=== PATIENT | male | born 1945 | race Caucasian/White ===

== ENCOUNTER 2016-09-23 11:02 | Inpatient (IN) | payer OTHER, MEDICAID ==
[~2016-09-23] VITALS: Ht 172.7 cm; Wt 126.6 kg
[2016-09-23] VITALS (13 sets, daily range): BP systolic 77–171
[2016-09-23] MEDS ORDERED: NACL 0.9% 1,000 ML IV SCH (11:30)
[2016-09-23 11:58] LABS: BASOPHILS % (AUTO) 0.2 % (0.0-2.0); EOSINOPHILS # (AUTO) 0.1 K/uL (0.0-0.4); EOSINOPHILS % (AUTO) 0.4 % (0.0-4.0); HEMATOCRIT 29.3 % (36-54); HEMOGLOBIN 9.3 g/dL (14.0-18.0); LYMPHOCYTES # (AUTO) 3.5 K/uL (1.0-5.5); LYMPHOCYTES % (AUTO) 26.9 % (20.5-51.5); MEAN CORPUSCULAR HEMOGLOBIN 27 pg (27-31); MEAN CORPUSCULAR HGB CONC 32 % (32-36); MEAN CORPUSCULAR VOLUME 84 fL (79.0-98.0); MONOCYTES # (AUTO) 1.1 K/uL (0.0-1.0); MONOCYTES % (AUTO) 8.7 % (1.7-9.3); NEUTROPHILS # (AUTO) 8.3 K/uL (1.8-7.7); NEUTROPHILS % (AUTO) 63.8 % (40.0-70.0); PLATELET COUNT (AUTO) 329 K/uL (130-430); RED BLOOD CELL COUNT(AUTO) 3.47 MIL/uL (4.2-6.2); RED CELL DISTRIBUTION WIDTH 15.4 % (9.0-15.0)
[2016-09-23 12:00] LABS: CALCIUM 8.2 mg/dL (8.4-11.0); CREATININE 4.88 mg/dL (0.55-1.30); POTASSIUM 5.6 mmol/L (3.5-5.1)
[2016-09-23 12:04] LABS: INR 1.9 (0.80-1.20); PROTHROMBIN TIME 20.6 SECS (9.5-12.5)
[2016-09-23 12:05] LABS: ALBUMIN 2.8 g/dL (3.4-4.8); TOTAL BILIRUBIN 0.6 mg/dL (0.0-1.0); TOTAL PROTEIN, SERUM 7.4 g/dL (6.4-8.3)
[2016-09-23 12:12] LABS: BILIRUBIN,URINE 1+ (NEGATIVE); CLARITY/URINE CLEAR (CLEAR); COLOR,URINE YELLOW (YELLOW); GLUCOSE,URINE NEGATIVE (NEGATIVE); KETONES,URINE NEGATIVE (NEGATIVE); LEUKOCYTE ESTERASE ,URINE NEGATIVE (NEGATIVE); NITRITE, URINE NEGATIVE (NEGATIVE); PROTEIN URINE 1+ (NEGATIVE); UROBILINOGEN,URINE 0.2 (0.2-1.0)
[2016-09-23 12:15] LABS: BLOOD, URINE TRACE (NEGATIVE)
[2016-09-23 12:23] LABS: BACTERIA,URINE MODERATE /HPF (None Seen); MUCUS,URINE 1+ /LPF (None Seen)
[2016-09-23] MEDS ORDERED: NACL 0.9% 1,000 ML IV ONE ×2 (13:30→14:45)
[2016-09-23] MEDS ORDERED: DARU1TAB PO (14:07)
[2016-09-23] MEDS ORDERED: LYR50 PO (14:07)
[2016-09-23] MEDS ORDERED: CLOP75TA2 PO (14:07)
[2016-09-23] MEDS ORDERED: OXYC-133 PO (14:07)
[2016-09-23] MEDS ORDERED: PROC10TA PO (14:07)
[2016-09-23] MEDS ORDERED: METH750T3 PO (14:07)
[2016-09-23] MEDS ORDERED: DULA0.75 SQ (14:07)
[2016-09-23] MEDS ORDERED: BECL8.7A5 INH (14:07)
[2016-09-23] MEDS ORDERED: LISI-209 PO (14:07)
[2016-09-23] MEDS ORDERED: LORA10TA7 PO (14:07)
[2016-09-23] MEDS ORDERED: ASPI-1063 PO (14:07)
[2016-09-23] MEDS ORDERED: FURO40TA5 PO (14:07)
[2016-09-23] MEDS ORDERED: INSU100V26 SUBCUT (14:07)
[2016-09-23] MEDS ORDERED: NPH,100V SUBCUT (14:07)
[2016-09-23] MEDS ORDERED: PRO40 PO (14:07)
[2016-09-23] MEDS ORDERED: ENOX120D3 SQ (14:07)
[2016-09-23] MEDS ORDERED: OMEG1CAP8 PO (14:07)
[2016-09-23] MEDS ORDERED: ALBMDI INH (14:07)
[2016-09-23] MEDS ORDERED: SELZENTRY PO (14:07)
[2016-09-23] MEDS ORDERED: ROSU10TA PO (14:07)
[2016-09-23] MEDS ORDERED: WARF7.5T2 PO (14:07)
[2016-09-23] MEDS ORDERED: RALT400T5 PO (14:07)
[2016-09-23] MEDS ORDERED: GLU500 PO (14:07)
[2016-09-23] MEDS ORDERED: MORP30TA PO (14:07)
[2016-09-23] MEDS ORDERED: OXYC5TAB84 PO (14:07)
[2016-09-23] MEDS ORDERED: cefTRIAXone 1 GM VIAL IM ONE (14:45)
[2016-09-23] MEDS ORDERED: D5NS 1,000 ML IV ONE (15:00)
[2016-09-23] MEDS ORDERED: *HEPARIN PER PHARMACY XX ONE (15:00)
[2016-09-23] MEDS ORDERED: COMMUNICATION ORDER XX ONE (15:00)
[2016-09-23] MEDS ORDERED: ACYCLOVIR IV 500 MG in D5W 100 ML IV ONE (15:00)
[2016-09-23] MEDS ORDERED: DEXTROSE 50% JECT 50 ML DISP.SYRIN IVP PRN (15:00)
[2016-09-23] MEDS ORDERED: cefTRIAXone 1 GM IVPB PREMIX 50 ML IV ONE ×2 (15:00→17:30)
[2016-09-23] MEDS ORDERED: VANCOMYCIN HCL 1,000 MG in NS 250 ML IV ONE (15:00)
[2016-09-23] MEDS ORDERED: ACYCLOVIR SODIUM 50 MG/ML VIAL IV ONE (15:14)
[2016-09-23] MEDS ORDERED: VANCOMYCIN HCL 1000 MG/VIAL IV ONE (15:27)
[2016-09-23] MEDS ORDERED: HEPARIN SODIUM,PORCINE 3000 UNITS/0.6 ML BOLUS IVP PRN (16:15)
[2016-09-23] MEDS: HEPARIN 25,000 UNITS in 250 ML PREMIX IV PRN (17:23)
[2016-09-23] MEDS ORDERED: LIDOCAINE 1%, 20 ML MDV 20 ML ONE (18:28)
[2016-09-23 19:34] LABS: BLOOD GAS PH 7.184 (7.350-7.450)
[2016-09-23 19:35] LABS: ABG TOTAL HEMOGLOBIN 9.4 G/dL (12.0-18.0); BLOOD GAS BASE EXCESS -3.9 mmol/L (-3.0-3.0); BLOOD GAS COHb% 1.2 % (0.5-1.5); BLOOD GAS HHB 7.3 % (0.0-6.0)
[2016-09-23] MEDS: NACL 0.9% 1,000 ML IV ONE ×2 (19:45→21:04)
[2016-09-23 20:07] LABS: BF APPEARANCE UNSPUN BLOODY (CLEAR); BODY FLUID COLOR RED (LT YELLOW); BODY FLUID CRYSTALS NO CRYSTALS SEEN (None Seen); MONOCYTES,BODY FLUID 2 %; NEUTROPHIL, BODY FLUID 98 %; RBC, BODY FLUID 89375 /uL; SOURCE/TYPE ,BODY FLUID SYNOVIAL; WBC, BODY FLUID 20000 /uL
[2016-09-23] MEDS ORDERED: NOREPINEPHRINE BITARTRATE 4 MG in D5W 246 ML IV PRN (20:30)
[2016-09-23] MEDS ORDERED: LORazepam 2 MG/ML VIAL IVP PRN (20:30)
[2016-09-23 20:32] LABS: CALCIUM 7.7 mg/dL (8.4-11.0); CREATININE 4.71 mg/dL (0.55-1.30)
[2016-09-23] MEDS ORDERED: LORazepam 2 MG/ML VIAL ONE (20:37)
[2016-09-23 20:48] LABS: POTASSIUM 5.9 mmol/L (3.5-5.1)
[2016-09-23 21:01] LABS: BLOOD GAS PH 7.215 (7.350-7.450)
[2016-09-23 21:04] LABS: ABG TOTAL HEMOGLOBIN 9.7 G/dL (12.0-18.0); BLOOD GAS BASE EXCESS -6.5 mmol/L (-3.0-3.0); BLOOD GAS COHb% 0.8 % (0.5-1.5); BLOOD O2Hb% 97.5 % (94.0-97.0)
[2016-09-23 21:05] LABS: BLOOD GAS HHB 1.3 % (0.0-6.0)
[2016-09-23] MEDS: HYDROCORTISONE SOD SUCC 100 MG/2 ML VIAL IVP SCH (21:17)
[2016-09-23] MEDS ORDERED: SODIUM POLYSTYRENE SULFONATE 15 GM/60 ML UDBTL RC SCH (22:00)
[2016-09-23] MEDS ORDERED: NOREPINEPHRINE 4 MG/4 ML VIAL IV ONE (22:04)
[2016-09-23] MEDS: PANTOPRAZOLE SODIUM 40 MG/VIAL (PROTONIX) IVP SCH (22:23)
[2016-09-23 22:50] LABS: BLOOD GAS PH 7.302 (7.350-7.450)
[2016-09-23 22:52] LABS: ABG TOTAL HEMOGLOBIN 9.1 G/dL (12.0-18.0); BLOOD GAS BASE EXCESS -5.8 mmol/L (-3.0-3.0); BLOOD GAS HHB 2.3 % (0.0-6.0); BLOOD O2Hb% 96.6 % (94.0-97.0)
[2016-09-23] MEDS: ALBUTEROL SULFATE 0.083% 2.5 MG/3 ML VIAL.NEB INH SCH ×2 (23:45→23:47)
[2016-09-23] MEDS: IPRATROPIUM BROM 0.5 MG/2.5 ML VIAL.NEB (ATROVENT) INH SCH ×2 (23:46→23:47)
[2016-09-24] VITALS (26 sets, daily range): BP systolic 90–132
[2016-09-24] MEDS: INSULIN REGULAR, HUMAN 100 UNITS/ML, 10 ML VIAL (novoLIN R) SUBCUT PRN ×4 (00:51→17:35)
[2016-09-24] MEDS: ALBUTEROL SULFATE 0.083% 2.5 MG/3 ML VIAL.NEB INH SCH ×6 (03:46→23:22)
[2016-09-24] MEDS: IPRATROPIUM BROM 0.5 MG/2.5 ML VIAL.NEB (ATROVENT) INH SCH ×6 (03:46→23:22)
[2016-09-24] MEDS: D5NS 1,000 ML IV SCH ×2 (05:24→13:50)
[2016-09-24] MEDS: ALBUTEROL SULFATE 0.083% 2.5 MG/3 ML VIAL.NEB INH PRN (05:27)
[2016-09-24] MEDS: IPRATROPIUM BROM 0.5 MG/2.5 ML VIAL.NEB (ATROVENT) INH PRN (05:27)
[2016-09-24] MEDS: HYDROCORTISONE SOD SUCC 100 MG/2 ML VIAL IVP SCH ×3 (05:36→21:54)
[2016-09-24 06:31] LABS: BLOOD GAS PH 7.224 (7.350-7.450)
[2016-09-24 06:32] LABS: ABG TOTAL HEMOGLOBIN 10.5 G/dL (12.0-18.0); BLOOD GAS BASE EXCESS -6.9 mmol/L (-3.0-3.0); BLOOD GAS COHb% 0.8 % (0.5-1.5); BLOOD GAS HHB 4.6 % (0.0-6.0); BLOOD O2Hb% 94.3 % (94.0-97.0)
[2016-09-24] MEDS ORDERED: NOREPINEPHRINE 4 MG/4 ML VIAL IV ONE (06:39)
[2016-09-24 06:47] LABS: BASOPHILS % (AUTO) 0.3 % (0.0-2.0); HEMATOCRIT 27.4 % (36-54); HEMOGLOBIN 8.9 g/dL (14.0-18.0); LYMPHOCYTES # (AUTO) 3.4 K/uL (1.0-5.5); LYMPHOCYTES % (AUTO) 23.7 % (20.5-51.5); MEAN CORPUSCULAR HEMOGLOBIN 27 pg (27-31); MEAN CORPUSCULAR HGB CONC 32 % (32-36); MEAN CORPUSCULAR VOLUME 84 fL (79.0-98.0); MONOCYTES # (AUTO) 1.2 K/uL (0.0-1.0); MONOCYTES % (AUTO) 8.1 % (1.7-9.3); NEUTROPHILS # (AUTO) 9.9 K/uL (1.8-7.7); NEUTROPHILS % (AUTO) 67.9 % (40.0-70.0); PLATELET COUNT (AUTO) 361 K/uL (130-430); RED BLOOD CELL COUNT(AUTO) 3.26 MIL/uL (4.2-6.2); RED CELL DISTRIBUTION WIDTH 15.3 % (9.0-15.0); WHITE BLOOD COUNT (AUTO) 14.5 K/uL (4.8-10.8)
[2016-09-24 07:07] LABS: INR 1.8 (0.80-1.20); PROTHROMBIN TIME 19.7 SECS (9.5-12.5)
[2016-09-24 07:21] LABS: ALBUMIN 2.3 g/dL (3.4-4.8); CALCIUM 7.8 mg/dL (8.4-11.0); CREATININE 3.61 mg/dL (0.55-1.30); POTASSIUM 4.6 mmol/L (3.5-5.1); TOTAL BILIRUBIN 0.4 mg/dL (0.0-1.0); TOTAL PROTEIN, SERUM 6.7 g/dL (6.4-8.3)
[2016-09-24] MEDS: PANTOPRAZOLE SODIUM 40 MG/VIAL (PROTONIX) IVP SCH (08:25)
[2016-09-24] MEDS: HEPARIN 25,000 UNITS in 250 ML PREMIX IV PRN (10:15)
[2016-09-24] MEDS ORDERED: ETOMIDATE 20 MG/ 10 ML VIAL (AMIDATE) IVP ONE (14:21)
[2016-09-24] MEDS ORDERED: INSULIN NPH 100 UNITS/ML 10 ML VIAL SUBCUT SCH (17:00)
[2016-09-24] MEDS ORDERED: FUROSEMIDE 40 MG TABLET PO SCH (17:00)
[2016-09-24] MEDS ORDERED: PROCHLORPERAZINE MALEATE 10 MG TABLET PO SCH (17:00)
[2016-09-24] MEDS ORDERED: PANTOPRAZOLE SODIUM 40 MG TAB PO ONE (17:15)
[2016-09-24] MEDS: INSULIN ASPART 100 UNITS/ML, 10 ML VIAL SUBCUT SCH (17:36)
[2016-09-24] MEDS ORDERED: metFORMIN HCL 500 MG TABLET PO SCH (18:00)
[2016-09-24] MEDS ORDERED: PREGABALIN 25 MG CAPSULE (LYRICA) PO SCH (21:00)
[2016-09-24] MEDS: METHOCARBAMOL 500 MG TABLET PO SCH (21:00)
[2016-09-24] MEDS ORDERED: MORPHINE SULFATE 30 MG Immediate Release TABLET PO SCH (22:00)
[2016-09-24] MEDS ORDERED: METHOCARBAMOL 500 MG TABLET ONE (22:00)
[2016-09-25] VITALS (17 sets, daily range): BP systolic 119–158
[2016-09-25] MEDS: D5NS 1,000 ML IV SCH (01:10)
[2016-09-25] MEDS: HYDROcodone/ACETAMIN 5-325 MG TAB (NORCO/ VICODIN) PO PRN ×2 (01:55→08:15)
[2016-09-25] MEDS: HEPARIN 25,000 UNITS in 250 ML PREMIX IV PRN ×2 (03:31→19:31)
[2016-09-25] MEDS: HYDROCORTISONE SOD SUCC 100 MG/2 ML VIAL IVP SCH ×3 (05:13→21:04)
[2016-09-25 06:09] LABS: BASOPHILS % (AUTO) 0.2 % (0.0-2.0); EOSINOPHILS % (AUTO) 0.4 % (0.0-4.0); HEMATOCRIT 24.5 % (36-54); HEMOGLOBIN 7.8 g/dL (14.0-18.0); LYMPHOCYTES # (AUTO) 1.4 K/uL (1.0-5.5); LYMPHOCYTES % (AUTO) 25.5 % (20.5-51.5); MEAN CORPUSCULAR HEMOGLOBIN 27 pg (27-31); MEAN CORPUSCULAR HGB CONC 32 % (32-36); MEAN CORPUSCULAR VOLUME 85 fL (79.0-98.0); MONOCYTES # (AUTO) 0.5 K/uL (0.0-1.0); MONOCYTES % (AUTO) 9.3 % (1.7-9.3); NEUTROPHILS # (AUTO) 3.6 K/uL (1.8-7.7); NEUTROPHILS % (AUTO) 64.6 % (40.0-70.0); PLATELET COUNT (AUTO) 227 K/uL (130-430); RED BLOOD CELL COUNT(AUTO) 2.89 MIL/uL (4.2-6.2); WHITE BLOOD COUNT (AUTO) 5.5 K/uL (4.8-10.8)
[2016-09-25 06:29] LABS: ALBUMIN 2.3 g/dL (3.4-4.8); CALCIUM 7.9 mg/dL (8.4-11.0); CREATININE 1.72 mg/dL (0.55-1.30); POTASSIUM 3.6 mmol/L (3.5-5.1); TOTAL BILIRUBIN 0.3 mg/dL (0.0-1.0); TOTAL PROTEIN, SERUM 6.5 g/dL (6.4-8.3)
[2016-09-25 06:50] LABS: INR 1.4 (0.80-1.20); PROTHROMBIN TIME 15.7 SECS (9.5-12.5)
[2016-09-25] MEDS: PANTOPRAZOLE SODIUM 40 MG TAB PO SCH (08:44)
[2016-09-25] MEDS: ASPIRIN 81 MG TABLET(ECOTRIN) PO SCH (08:44)
[2016-09-25] MEDS: METHOCARBAMOL 500 MG TABLET PO SCH ×3 (08:45→21:04)
[2016-09-25] MEDS: INSULIN ASPART 100 UNITS/ML, 10 ML VIAL SUBCUT SCH ×2 (08:46→17:21)
[2016-09-25] MEDS ORDERED: LISINOPRIL 5 MG TABLET PO SCH (09:00)
[2016-09-25] MEDS ORDERED: LORATADINE 10 MG TABLET PO SCH (09:00)
[2016-09-25] MEDS ORDERED: CLOPIDOGREL BISULFATE 75 MG TABLET PO SCH (09:00)
[2016-09-25] MEDS ORDERED: VANCOMYCIN HCL 1,500 MG in NS 250 ML IV SCH (09:00)
[2016-09-25] MEDS ORDERED: ROSUVASTATIN CALCIUM 5 MG/TAB (CRESTOR) PO SCH (09:00)
[2016-09-25] MEDS: VANCOMYCIN HCL 1,500 MG in NS 250 ML IV SCH (09:11)
[2016-09-25] MEDS ORDERED: MORPHINE 4 MG/ML INJ. SYRINGE IVP PRN (10:00)
[2016-09-25] MEDS ORDERED: MORPHINE 2 MG/ML INJ. SYRINGE IVP ONE ×2 (10:00)
[2016-09-25] MEDS ORDERED: FUROSEMIDE 40 MG/4 ML VIAL IVP ONE (10:00)
[2016-09-25] MEDS ORDERED: MORPHINE 2 MG/ML INJ. SYRINGE ONE (10:30)
[2016-09-25] MEDS: 0.45% NACL 1,000 ML IV SCH (10:40)
[2016-09-25] MEDS: IPRATROPIUM BROM 0.5 MG/2.5 ML VIAL.NEB (ATROVENT) INH SCH ×5 (11:00→23:57)
[2016-09-25] MEDS: ALBUTEROL SULFATE 0.083% 2.5 MG/3 ML VIAL.NEB INH SCH ×5 (11:00→23:57)
[2016-09-25] MEDS ORDERED: METOCLOPRAMIDE HCL 10 MG/2 ML VIAL ONE (15:07)
[2016-09-25] MEDS ORDERED: DIATR MEGLU/DIATRIZ SOD 30 ML SOLUTION PO ONE (15:11)
[2016-09-25] MEDS: HEPARIN SODIUM,PORCINE 2000 UNITS/0.4 ML BOLUS IVP PRN ×2 (16:07→23:18)
[2016-09-25] MEDS: INSULIN REGULAR, HUMAN 100 UNITS/ML, 10 ML VIAL (novoLIN R) SUBCUT PRN (17:23)
[2016-09-25] MEDS: OXYCODONE/ACETAMINOPHEN *10*mg/325 mg TABLET PO PRN ×2 (17:29→22:26)
[2016-09-25] MEDS: WARFARIN SODIUM 7.5 MG TABLET PO SCH (17:44)
[2016-09-25] MEDS: METOCLOPRAMIDE HCL 10 MG/2 ML VIAL IVP PRN (21:03)
[2016-09-25] MEDS: HYDROmorphone 1 MG INJ. 1 MG/ML AMPUL IVP PRN (23:19)
[2016-09-26 00:46] VITALS: BP_SYST 130
[2016-09-26 03:37] VITALS: BP_SYST 133
[2016-09-26] MEDS: ALBUTEROL SULFATE 0.083% 2.5 MG/3 ML VIAL.NEB INH SCH ×6 (03:41→23:55)
[2016-09-26] MEDS: IPRATROPIUM BROM 0.5 MG/2.5 ML VIAL.NEB (ATROVENT) INH SCH ×6 (03:41→23:54)
[2016-09-26] MEDS: 0.45% NACL 1,000 ML IV SCH (05:11)
[2016-09-26] MEDS: HYDROCORTISONE SOD SUCC 100 MG/2 ML VIAL IVP SCH ×3 (05:12→20:56)
[2016-09-26 07:17] LABS: INR 1.2 (0.80-1.20); PROTHROMBIN TIME 13.6 SECS (9.5-12.5)
[2016-09-26 07:19] LABS: BASOPHILS % (AUTO) 0.2 % (0.0-2.0); EOSINOPHILS % (AUTO) 0.1 % (0.0-4.0); HEMATOCRIT 24.9 % (36-54); HEMOGLOBIN 8.2 g/dL (14.0-18.0); LYMPHOCYTES # (AUTO) 1.3 K/uL (1.0-5.5); LYMPHOCYTES % (AUTO) 17.6 % (20.5-51.5); MEAN CORPUSCULAR HEMOGLOBIN 27 pg (27-31); MEAN CORPUSCULAR HGB CONC 33 % (32-36); MEAN CORPUSCULAR VOLUME 83 fL (79.0-98.0); MONOCYTES # (AUTO) 0.5 K/uL (0.0-1.0); MONOCYTES % (AUTO) 7.1 % (1.7-9.3); NEUTROPHILS # (AUTO) 5.4 K/uL (1.8-7.7); PLATELET COUNT (AUTO) 292 K/uL (130-430); RED CELL DISTRIBUTION WIDTH 14.7 % (9.0-15.0)
[2016-09-26 07:27] LABS: WHITE BLOOD COUNT (AUTO) 7.2 K/uL (4.8-10.8)
[2016-09-26 07:30] LABS: ALBUMIN 4.8 g/dL (3.4-4.8); CALCIUM 8.1 mg/dL (8.4-11.0); CREATININE 1.38 mg/dL (0.55-1.30); TOTAL BILIRUBIN 0.5 mg/dL (0.0-1.0); TOTAL PROTEIN, SERUM 6.4 g/dL (6.4-8.3)
[2016-09-26 07:46] LABS: POTASSIUM 2.8 mmol/L (3.5-5.1)
[2016-09-26 08:10] VITALS: BP_SYST 150
[2016-09-26] MEDS: INSULIN ASPART 100 UNITS/ML, 10 ML VIAL SUBCUT SCH ×2 (08:30→17:58)
[2016-09-26] MEDS: METHOCARBAMOL 500 MG TABLET PO SCH ×3 (08:46→20:56)
[2016-09-26] MEDS: ASPIRIN 81 MG TABLET(ECOTRIN) PO SCH (08:46)
[2016-09-26] MEDS: PANTOPRAZOLE SODIUM 40 MG TAB PO SCH (08:47)
[2016-09-26] MEDS: VANCOMYCIN HCL 1,500 MG in NS 250 ML IV SCH (08:47)
[2016-09-26] MEDS: HEPARIN 25,000 UNITS in 250 ML PREMIX IV PRN ×3 (08:52→23:46)
[2016-09-26 09:46] LABS: ABG TOTAL HEMOGLOBIN 8.7 G/dL (12.0-18.0); BLOOD GAS BASE EXCESS 4.1 mmol/L (-3.0-3.0); BLOOD GAS COHb% 0.9 % (0.5-1.5); BLOOD GAS HHB 3.3 % (0.0-6.0); BLOOD GAS PH 7.465 (7.350-7.450); BLOOD O2Hb% 95.4 % (94.0-97.0)
[2016-09-26 10:09] LABS: BLOOD O2Hb% 91.3 % (94.0-97.0)
[2016-09-26] MEDS ORDERED: FUROSEMIDE 40 MG/4 ML VIAL IVP ONE (10:30)
[2016-09-26] MEDS: POTASSIUM CHLORIDE 20 MEQ TAB.PRT.SR PO SCH ×2 (11:17→13:30)
[2016-09-26] MEDS: METOCLOPRAMIDE HCL 10 MG/2 ML VIAL IVP PRN (11:38)
[2016-09-26 12:14] VITALS: BP_SYST 158
[2016-09-26] MEDS ORDERED: POTASSIUM CHLORIDE 40 MEQ, LIDOCAINE JECT 2% PF 100 MG 50 MG in NS 250 ML IV ONE (12:15)
[2016-09-26] MEDS: IPRATROPIUM BROM 0.5 MG/2.5 ML VIAL.NEB (ATROVENT) INH PRN (12:17)
[2016-09-26] MEDS: ALBUTEROL SULFATE 0.083% 2.5 MG/3 ML VIAL.NEB INH PRN ×2 (12:18→17:46)
[2016-09-26] MEDS: OXYCODONE/ACETAMINOPHEN *10*mg/325 mg TABLET PO PRN (14:59)
[2016-09-26] MEDS: HYDROmorphone 1 MG INJ. 1 MG/ML AMPUL IVP PRN ×2 (16:07→22:18)
[2016-09-26 16:09] VITALS: BP_SYST 151
[2016-09-26 17:40] VITALS: BP_SYST 151
[2016-09-26] MEDS: INSULIN REGULAR, HUMAN 100 UNITS/ML, 10 ML VIAL (novoLIN R) SUBCUT PRN ×2 (17:54→23:51)
[2016-09-26] MEDS: WARFARIN SODIUM 7.5 MG TABLET PO SCH (18:01)
[2016-09-26] MEDS: ZOLPIDEM TARTRATE 5 MG TABLET PO PRN (23:47)
[2016-09-27 00:39] VITALS: BP_SYST 138
[2016-09-27] MEDS: OXYCODONE/ACETAMINOPHEN *10*mg/325 mg TABLET PO PRN ×3 (02:23→21:22)
[2016-09-27] MEDS: IPRATROPIUM BROM 0.5 MG/2.5 ML VIAL.NEB (ATROVENT) INH SCH ×4 (03:00→20:01)
[2016-09-27] MEDS: ALBUTEROL SULFATE 0.083% 2.5 MG/3 ML VIAL.NEB INH SCH ×4 (03:00→20:01)
[2016-09-27 04:45] VITALS: BP_SYST 150
[2016-09-27] MEDS: HYDROCORTISONE SOD SUCC 100 MG/2 ML VIAL IVP SCH ×2 (05:47→14:00)
[2016-09-27 06:41] LABS: INR 1.3 (0.80-1.20); PROTHROMBIN TIME 13.7 SECS (9.5-12.5)
[2016-09-27 06:47] LABS: BASOPHILS % (AUTO) 0.1 % (0.0-2.0); EOSINOPHILS % (AUTO) 0.1 % (0.0-4.0); HEMATOCRIT 24.5 % (36-54); LYMPHOCYTES # (AUTO) 1.6 K/uL (1.0-5.5); LYMPHOCYTES % (AUTO) 17.4 % (20.5-51.5); MEAN CORPUSCULAR HEMOGLOBIN 27 pg (27-31); MEAN CORPUSCULAR HGB CONC 33 % (32-36); MEAN CORPUSCULAR VOLUME 84 fL (79.0-98.0); MONOCYTES # (AUTO) 0.4 K/uL (0.0-1.0); MONOCYTES % (AUTO) 4.4 % (1.7-9.3); PLATELET COUNT (AUTO) 293 K/uL (130-430); RED BLOOD CELL COUNT(AUTO) 2.94 MIL/uL (4.2-6.2); RED CELL DISTRIBUTION WIDTH 14.9 % (9.0-15.0)
[2016-09-27 06:51] LABS: ALBUMIN 2.8 g/dL (3.4-4.8); CALCIUM 8.2 mg/dL (8.4-11.0); CREATININE 1.41 mg/dL (0.55-1.30); POTASSIUM 3.1 mmol/L (3.5-5.1); TOTAL BILIRUBIN 0.5 mg/dL (0.0-1.0); TOTAL PROTEIN, SERUM 6.9 g/dL (6.4-8.3)
[2016-09-27] MEDS: PANTOPRAZOLE SODIUM 40 MG TAB PO SCH (09:00)
[2016-09-27] MEDS: METHOCARBAMOL 500 MG TABLET PO SCH ×3 (09:00→21:21)
[2016-09-27] MEDS: ASPIRIN 81 MG TABLET(ECOTRIN) PO SCH (09:00)
[2016-09-27 09:21] VITALS: BP_SYST 144
[2016-09-27] MEDS: INSULIN ASPART 100 UNITS/ML, 10 ML VIAL SUBCUT SCH ×2 (10:07→17:31)
[2016-09-27] MEDS: VANCOMYCIN HCL 1,500 MG in NS 250 ML IV SCH (10:13)
[2016-09-27] MEDS: HEPARIN 25,000 UNITS in 250 ML PREMIX IV PRN (10:29)
[2016-09-27] MEDS: HYDROmorphone 1 MG INJ. 1 MG/ML AMPUL IVP PRN (10:33)
[2016-09-27] MEDS ORDERED: RALTEGRAVIR POTASSIUM PO SCH (11:15)
[2016-09-27] MEDS ORDERED: SELZENTRY PO SCH (11:15)
[2016-09-27] MEDS ORDERED: DARUNAVIR PO SCH (11:15)
[2016-09-27] MEDS ORDERED: COBICISTAT PO SCH (11:15)
[2016-09-27] MEDS: PREZCOBIX PO SCH (11:20)
[2016-09-27] MEDS: ISENTRESS 400 MG TABLET PO SCH ×2 (11:20→21:30)
[2016-09-27] MEDS: SELZENTRY PO SCH ×2 (11:20→21:30)
[2016-09-27] MEDS ORDERED: POTASSIUM CHLORIDE 20 MEQ TAB.PRT.SR PO ONE (11:45)
[2016-09-27] MEDS: INSULIN REGULAR, HUMAN 100 UNITS/ML, 10 ML VIAL (novoLIN R) SUBCUT PRN ×2 (12:12→17:32)
[2016-09-27 12:27] VITALS: BP_SYST 153
[2016-09-27] MEDS ORDERED: *LOVENOX 1MG/KG Q12H/PHARMACY XX ONE (14:45)
[2016-09-27] MEDS: ENOXAPARIN SODIUM 120 MG/0.8 ML SYRINGE SUBCUT SCH (15:31)
[2016-09-27 16:14] VITALS: BP_SYST 134
[2016-09-27] MEDS ORDERED: WARFARIN SODIUM 5 MG TABLET PO SCH (18:00)
[2016-09-27 20:06] VITALS: BP_SYST 154
[2016-09-28] MEDS: ALBUTEROL SULFATE 0.083% 2.5 MG/3 ML VIAL.NEB INH SCH ×7 (00:12→23:21)
[2016-09-28] MEDS: IPRATROPIUM BROM 0.5 MG/2.5 ML VIAL.NEB (ATROVENT) INH SCH ×7 (00:12→23:21)
[2016-09-28 00:16] VITALS: BP_SYST 136
[2016-09-28] MEDS: ZOLPIDEM TARTRATE 5 MG TABLET PO PRN (01:15)
[2016-09-28] MEDS: OXYCODONE/ACETAMINOPHEN *10*mg/325 mg TABLET PO PRN ×3 (02:14→18:49)
[2016-09-28] MEDS: ENOXAPARIN SODIUM 120 MG/0.8 ML SYRINGE SUBCUT SCH ×2 (02:22→15:00)
[2016-09-28 04:36] VITALS: BP_SYST 143
[2016-09-28] MEDS: INSULIN REGULAR, HUMAN 100 UNITS/ML, 10 ML VIAL (novoLIN R) SUBCUT PRN (05:45)
[2016-09-28 07:36] LABS: BASOPHILS % (AUTO) 0.2 % (0.0-2.0); EOSINOPHILS % (AUTO) 0.3 % (0.0-4.0); HEMATOCRIT 24.7 % (36-54); LYMPHOCYTES # (AUTO) 1.4 K/uL (1.0-5.5); LYMPHOCYTES % (AUTO) 17.3 % (20.5-51.5); MEAN CORPUSCULAR HEMOGLOBIN 27 pg (27-31); MEAN CORPUSCULAR HGB CONC 32 % (32-36); MEAN CORPUSCULAR VOLUME 84 fL (79.0-98.0); MONOCYTES # (AUTO) 0.4 K/uL (0.0-1.0); MONOCYTES % (AUTO) 5.1 % (1.7-9.3); NEUTROPHILS # (AUTO) 6.4 K/uL (1.8-7.7); NEUTROPHILS % (AUTO) 77.1 % (40.0-70.0); PLATELET COUNT (AUTO) 302 K/uL (130-430); RED BLOOD CELL COUNT(AUTO) 2.95 MIL/uL (4.2-6.2); RED CELL DISTRIBUTION WIDTH 15.4 % (9.0-15.0); WHITE BLOOD COUNT (AUTO) 8.2 K/uL (4.8-10.8)
[2016-09-28 07:44] LABS: INR 1.3 (0.80-1.20); PROTHROMBIN TIME 14.1 SECS (9.5-12.5)
[2016-09-28 07:48] LABS: ALBUMIN 2.7 g/dL (3.4-4.8); CALCIUM 8.5 mg/dL (8.4-11.0); CREATININE 1.26 mg/dL (0.55-1.30); POTASSIUM 3.3 mmol/L (3.5-5.1); TOTAL BILIRUBIN 0.6 mg/dL (0.0-1.0); TOTAL PROTEIN, SERUM 6.8 g/dL (6.4-8.3)
[2016-09-28 08:00] VITALS: BP_SYST 144
[2016-09-28] MEDS: PANTOPRAZOLE SODIUM 40 MG TAB PO SCH (08:55)
[2016-09-28] MEDS: METHOCARBAMOL 500 MG TABLET PO SCH ×3 (08:55→21:31)
[2016-09-28] MEDS: SELZENTRY PO SCH ×2 (08:57→21:35)
[2016-09-28] MEDS: PREZCOBIX PO SCH (08:58)
[2016-09-28] MEDS: ISENTRESS 400 MG TABLET PO SCH ×2 (08:59→21:40)
[2016-09-28] MEDS: ASPIRIN 81 MG TABLET(ECOTRIN) PO SCH (09:00)
[2016-09-28] MEDS: INSULIN ASPART 100 UNITS/ML, 10 ML VIAL SUBCUT SCH ×2 (09:05→17:53)
[2016-09-28] MEDS ORDERED: DOXYCYCLINE HYCLATE 100 MG CAPSULE PO ONE (10:30)
[2016-09-28] MEDS ORDERED: FUROSEMIDE 20 MG/2 ML VIAL IVP ONE (10:45)
[2016-09-28] MEDS ORDERED: POTASSIUM CHLORIDE 20 MEQ TAB.PRT.SR PO ONE (10:45)
[2016-09-28] MEDS ORDERED: FUROSEMIDE 20 MG TABLET PO ONE (11:00)
[2016-09-28 12:35] VITALS: BP_SYST 153
[2016-09-28 16:14] VITALS: BP_SYST 147
[2016-09-28 18:09] LABS: BASOPHILS # (AUTO) 0.1 K/uL (0.0-0.2); BASOPHILS % (AUTO) 1.6 % (0.0-2.0); EOSINOPHILS % (AUTO) 0.2 % (0.0-4.0); HEMATOCRIT 26.3 % (36-54); HEMOGLOBIN 8.3 g/dL (14.0-18.0); LYMPHOCYTES # (AUTO) 1.6 K/uL (1.0-5.5); LYMPHOCYTES % (AUTO) 18.6 % (20.5-51.5); MEAN CORPUSCULAR HEMOGLOBIN 27 pg (27-31); MEAN CORPUSCULAR HGB CONC 31 % (32-36); MEAN CORPUSCULAR VOLUME 85 fL (79.0-98.0); MONOCYTES # (AUTO) 0.4 K/uL (0.0-1.0); MONOCYTES % (AUTO) 4.7 % (1.7-9.3); NEUTROPHILS # (AUTO) 6.3 K/uL (1.8-7.7); NEUTROPHILS % (AUTO) 74.9 % (40.0-70.0); PLATELET COUNT (AUTO) 328 K/uL (130-430); RED CELL DISTRIBUTION WIDTH 15.4 % (9.0-15.0); WHITE BLOOD COUNT (AUTO) 8.4 K/uL (4.8-10.8)
[2016-09-28 18:32] LABS: INR 1.3 (0.80-1.20); PROTHROMBIN TIME 14.2 SECS (9.5-12.5)
[2016-09-28] MEDS: DOXYCYCLINE HYCLATE 100 MG CAPSULE PO SCH (21:27)
[2016-09-29] MEDS: OXYCODONE/ACETAMINOPHEN *10*mg/325 mg TABLET PO PRN ×6 (00:05→22:01)
[2016-09-29 01:03] VITALS: BP_SYST 144
[2016-09-29] MEDS: ALBUTEROL SULFATE 0.083% 2.5 MG/3 ML VIAL.NEB INH SCH ×5 (02:59→21:02)
[2016-09-29] MEDS: IPRATROPIUM BROM 0.5 MG/2.5 ML VIAL.NEB (ATROVENT) INH SCH ×6 (02:59→23:00)
[2016-09-29 05:04] VITALS: BP_SYST 134
[2016-09-29 08:00] VITALS: BP_SYST 155
[2016-09-29] MEDS: DOXYCYCLINE HYCLATE 100 MG CAPSULE PO SCH ×2 (08:43→21:26)
[2016-09-29] MEDS: METHOCARBAMOL 500 MG TABLET PO SCH ×3 (08:43→21:31)
[2016-09-29] MEDS: PANTOPRAZOLE SODIUM 40 MG TAB PO SCH (08:44)
[2016-09-29] MEDS: ASPIRIN 81 MG TABLET(ECOTRIN) PO SCH (08:44)
[2016-09-29] MEDS: PREZCOBIX PO SCH (08:44)
[2016-09-29] MEDS: SELZENTRY PO SCH ×2 (08:44→21:33)
[2016-09-29] MEDS: ISENTRESS 400 MG TABLET PO SCH ×2 (08:44→21:34)
[2016-09-29] MEDS: INSULIN ASPART 100 UNITS/ML, 10 ML VIAL SUBCUT SCH ×2 (08:56→17:23)
[2016-09-29] MEDS ORDERED: PREDNISONE 20 MG TABLET PO ONE (11:00)
[2016-09-29] MEDS: INSULIN REGULAR, HUMAN 100 UNITS/ML, 10 ML VIAL (novoLIN R) SUBCUT PRN ×2 (11:25→17:26)
[2016-09-29 11:53] LABS: BASOPHILS % (AUTO) 0.1 % (0.0-2.0); EOSINOPHILS % (AUTO) 0.4 % (0.0-4.0); HEMATOCRIT 28.7 % (36-54); HEMOGLOBIN 9.1 g/dL (14.0-18.0); LYMPHOCYTES # (AUTO) 1.3 K/uL (1.0-5.5); LYMPHOCYTES % (AUTO) 13.7 % (20.5-51.5); MEAN CORPUSCULAR HEMOGLOBIN 27 pg (27-31); MEAN CORPUSCULAR HGB CONC 32 % (32-36); MEAN CORPUSCULAR VOLUME 85 fL (79.0-98.0); MONOCYTES # (AUTO) 0.3 K/uL (0.0-1.0); MONOCYTES % (AUTO) 2.7 % (1.7-9.3); NEUTROPHILS # (AUTO) 7.7 K/uL (1.8-7.7); NEUTROPHILS % (AUTO) 83.1 % (40.0-70.0); PLATELET COUNT (AUTO) 331 K/uL (130-430); RED BLOOD CELL COUNT(AUTO) 3.37 MIL/uL (4.2-6.2); RED CELL DISTRIBUTION WIDTH 15.7 % (9.0-15.0); WHITE BLOOD COUNT (AUTO) 9.3 K/uL (4.8-10.8)
[2016-09-29 12:05] LABS: CALCIUM 8.9 mg/dL (8.4-11.0); CHLORIDE 108 mmol/L (98-107); CREATININE 1.12 mg/dL (0.55-1.30); GLUCOSE 113 mg/dL (70-99); POTASSIUM 3.7 mmol/L (3.5-5.1); SODIUM SERUM 141 mmol/L (136-145); UREA NITROGEN, BLOOD 17 mg/dL (8-21)
[2016-09-29 12:06] LABS: ANION GAP < 3 (5-15); GFR AFRICAN AMERICAN 83 mL/min (>90)
[2016-09-29 12:10] LABS: ALANINE AMINOTRANSFERASE 40 U/L (12-78); ALBUMIN 2.9 g/dL (3.4-4.8); ASPARTATE AMINOTRANSFERASE 33 U/L (10-37); TOTAL BILIRUBIN 0.6 mg/dL (0.0-1.0); TOTAL PROTEIN, SERUM 7.3 g/dL (6.4-8.3)
[2016-09-29 12:49] VITALS: BP_SYST 157
[2016-09-29] MEDS: LACTOBACILLUS RHAMNOSUS GG 1 CAP CAPSULE PO SCH ×2 (13:15→21:25)
[2016-09-29] MEDS: CEPHALEXIN 500 MG CAPSULE PO SCH ×3 (14:24→23:14)
[2016-09-29] MEDS ORDERED: MINERAL OIL 30 ML UDC PO ONE (15:00)
[2016-09-29] MEDS: DIPHENHYDRAMINE HCL/ZINC ACET 28.3 GM CREAM.GM. TP SCH ×3 (15:00→21:22)
[2016-09-29 16:55] VITALS: BP_SYST 149
[2016-09-30] MEDS: ALBUTEROL SULFATE 0.083% 2.5 MG/3 ML VIAL.NEB INH SCH ×5 (00:18→15:06)
[2016-09-30 00:25] VITALS: BP_SYST 150
[2016-09-30] MEDS: ALBUTEROL SULFATE 0.083% 2.5 MG/3 ML VIAL.NEB INH PRN (00:56)
[2016-09-30] MEDS: IPRATROPIUM BROM 0.5 MG/2.5 ML VIAL.NEB (ATROVENT) INH PRN (00:56)
[2016-09-30] MEDS: OXYCODONE/ACETAMINOPHEN *10*mg/325 mg TABLET PO PRN ×4 (02:52→20:01)
[2016-09-30] MEDS: IPRATROPIUM BROM 0.5 MG/2.5 ML VIAL.NEB (ATROVENT) INH SCH ×4 (03:00→15:06)
[2016-09-30 04:36] VITALS: BP_SYST 144
[2016-09-30] MEDS: CEPHALEXIN 500 MG CAPSULE PO SCH ×3 (05:35→17:59)
[2016-09-30 06:29] LABS: BASOPHILS % (AUTO) 0.1 % (0.0-2.0); EOSINOPHILS % (AUTO) 0.4 % (0.0-4.0); HEMATOCRIT 25.9 % (36-54); HEMOGLOBIN 8.4 g/dL (14.0-18.0); LYMPHOCYTES # (AUTO) 1.3 K/uL (1.0-5.5); MEAN CORPUSCULAR HEMOGLOBIN 27 pg (27-31); MEAN CORPUSCULAR HGB CONC 32 % (32-36); MEAN CORPUSCULAR VOLUME 84 fL (79.0-98.0); MONOCYTES # (AUTO) 0.4 K/uL (0.0-1.0); MONOCYTES % (AUTO) 4.1 % (1.7-9.3); NEUTROPHILS # (AUTO) 6.9 K/uL (1.8-7.7); NEUTROPHILS % (AUTO) 80.4 % (40.0-70.0); PLATELET COUNT (AUTO) 297 K/uL (130-430); RED BLOOD CELL COUNT(AUTO) 3.07 MIL/uL (4.2-6.2); RED CELL DISTRIBUTION WIDTH 15.7 % (9.0-15.0); WHITE BLOOD COUNT (AUTO) 8.6 K/uL (4.8-10.8)
[2016-09-30 06:36] LABS: ALBUMIN 2.7 g/dL (3.4-4.8); CALCIUM 8.7 mg/dL (8.4-11.0); CREATININE 1.14 mg/dL (0.55-1.30); POTASSIUM 3.8 mmol/L (3.5-5.1); TOTAL BILIRUBIN 0.6 mg/dL (0.0-1.0); TOTAL PROTEIN, SERUM 6.7 g/dL (6.4-8.3)
[2016-09-30] MEDS: DIPHENHYDRAMINE HCL/ZINC ACET 28.3 GM CREAM.GM. TP SCH ×2 (09:00→15:13)
[2016-09-30] MEDS ORDERED: PREDNISONE 20 MG TABLET PO SCH (09:00)
[2016-09-30] MEDS ORDERED: MINERAL OIL 30 ML UDC PO SCH (09:00)
[2016-09-30] MEDS: DOXYCYCLINE HYCLATE 100 MG CAPSULE PO SCH (09:41)
[2016-09-30] MEDS: LACTOBACILLUS RHAMNOSUS GG 1 CAP CAPSULE PO SCH (09:41)
[2016-09-30] MEDS: ASPIRIN 81 MG TABLET(ECOTRIN) PO SCH (09:41)
[2016-09-30] MEDS: ISENTRESS 400 MG TABLET PO SCH (09:42)
[2016-09-30] MEDS: SELZENTRY PO SCH (09:43)
[2016-09-30] MEDS: METHOCARBAMOL 500 MG TABLET PO SCH ×2 (09:43→15:14)
[2016-09-30] MEDS: PANTOPRAZOLE SODIUM 40 MG TAB PO SCH (09:43)
[2016-09-30] MEDS: PREZCOBIX PO SCH (09:43)
[2016-09-30] MEDS: INSULIN ASPART 100 UNITS/ML, 10 ML VIAL SUBCUT SCH ×2 (09:45→18:03)
[2016-09-30 12:00] VITALS: BP_SYST 132
[2016-09-30 17:14] VITALS: BP_SYST 165
[2016-09-30] MEDS ORDERED: cloNIDine HCL 0.1 MG TABLET PO ONE (18:00)
[2016-09-30 18:24] VITALS: BP_SYST 158
[2016-09-30 20:00] VITALS: BP_SYST 154
[2016-10-01] MEDS ORDERED: PREDNISONE 20 MG TABLET PO SCH (09:00)
== END 2016-09-30 21:05 | DRG 559 ==
LOC: SED 11:02 → SIC 14:42 → STU 09-25 17:43
PROVIDERS: ADMIT Internal Medicine Hospice and Palliative Medicine; ATTEND Internal Medicine Hospice and Palliative Medicine
PROC: 02HV33Z Insertion of Infusion Device into Superior Vena Cava, Percutaneous Approach (ICD-10-PCS; principal; 2016-09-24)
PROC: 0BH17EZ Insertion of Endotracheal Airway into Trachea, Via Natural or Artificial Opening (ICD-10-PCS; 2016-09-24)
PROC: 0S9D3ZZ Drainage of Left Knee Joint, Percutaneous Approach (ICD-10-PCS; 2016-09-24)
PROC: 5A1935Z Respiratory Ventilation, Less than 24 Consecutive Hours (ICD-10-PCS; 2016-09-24)
PROC: 5A09357 Assistance with Respiratory Ventilation, Less than 24 Consecutive Hours, Continuous Positive Airway Pressure (ICD-10-PCS; 2016-09-24)
DX: T84.54XA Infection and inflammatory reaction due to internal left knee prosthesis, initial encounter (principal); A41.9 Sepsis, unspecified organism; N17.0 Acute kidney failure with tubular necrosis; G93.41 Metabolic encephalopathy; J96.02 Acute respiratory failure with hypercapnia; R65.21 Severe sepsis with septic shock; I13.0 Hypertensive heart and chronic kidney disease with heart failure and stage 1 through stage 4 chronic kidney disease, or unspecified chronic kidney disease; M00.9 Pyogenic arthritis, unspecified; M25.00 Hemarthrosis, unspecified joint; E87.1 Hypo-osmolality and hyponatremia; N39.0 Urinary tract infection, site not specified; Z68.41 Body mass index [BMI] 40.0-44.9, adult; L03.116 Cellulitis of left lower limb; M25.062 Hemarthrosis, left knee; E11.22 Type 2 diabetes mellitus with diabetic chronic kidney disease; E11.51 Type 2 diabetes mellitus with diabetic peripheral angiopathy without gangrene; E66.01 Morbid (severe) obesity due to excess calories; G47.33 Obstructive sleep apnea (adult) (pediatric); I25.10 Atherosclerotic heart disease of native coronary artery without angina pectoris; I50.9 Heart failure, unspecified; J44.9 Chronic obstructive pulmonary disease, unspecified; N18.9 Chronic kidney disease, unspecified; R31.0 Gross hematuria; Z96.653 Presence of artificial knee joint, bilateral; E87.5 Hyperkalemia; D64.9 Anemia, unspecified; G89.4 Chronic pain syndrome; Z79.02 Long term (current) use of antithrombotics/antiplatelets; Z79.82 Long term (current) use of aspirin; Z80.0 Family history of malignant neoplasm of digestive organs; Z83.3 Family history of diabetes mellitus; Z86.718 Personal history of other venous thrombosis and embolism; Z86.73 Personal history of transient ischemic attack (TIA), and cerebral infarction without residual deficits; Z87.891 Personal history of nicotine dependence; Z95.5 Presence of coronary angioplasty implant and graft; Z79.01 Long term (current) use of anticoagulants
CPT/HCPCS: 36415; 36600; 70450-TC; 71010; 71250-TC; 73560-TC; 76770; 80048; 80053; 81000-TC; 82803-TC; 82947-TC; 82962; 83605; 83690-TC; 83880; 84157-TC; 84484; 85025; 85610-TC; 85730-TC; 87040-TC; 87070-TC; 87081; 87086; 87205-TC; 87230-TC; 89051-TC; 89060-TC; 93005; 93306; 93970; 94002; 94003; 94640; 94660; 94760; 96361; 96365; 96368; 97110-GP; 97116-GP; 97530-GP; 99285; C1751; C9113; J0133; J0696; J1170; J1644; J1650; J1720; J1815; J1940; J2001; J2060; J2270; J2765; J3370; J3480; J3490; J7030; J7042; J7050; J7060; J7512; Q9964

== ENCOUNTER 2016-10-20 09:47 | Inpatient (IN) | payer OTHER, MEDICAID ==
[~2016-10-20] VITALS: Ht 172.7 cm; Wt 130.6 kg
[~2016-10-20 09:47] MED LIST: ALBMDI INH; ASPI-1063 PO; BECL8.7A5 INH; CLOP75TA2 PO; DARU1TAB PO; DULA0.75 SQ; ENOX120D3 SQ; FURO40TA5 PO; GLU500 PO; INSU100V26 SUBCUT; LISI-209 PO; LORA10TA7 PO; LYR50 PO; METH750T3 PO; MORP30TA PO; NPH,100V SUBCUT; OMEG1CAP8 PO; OXYC-133 PO; OXYC5TAB84 PO; PRO40 PO; PROC10TA PO; RALT400T5 PO; ROSU10TA PO; SELZENTRY PO
[2016-10-20 10:18] VITALS: BP_SYST 126
[2016-10-20 10:29] LABS: BASOPHILS # (AUTO) 0.1 K/uL (0.0-0.2); BASOPHILS % (AUTO) 0.8 % (0.0-2.0); EOSINOPHILS # (AUTO) 0.3 K/uL (0.0-0.4); EOSINOPHILS % (AUTO) 4.4 % (0.0-4.0); HEMATOCRIT 26.4 % (36-54); HEMOGLOBIN 8.5 g/dL (14.0-18.0); LYMPHOCYTES # (AUTO) 1.8 K/uL (1.0-5.5); LYMPHOCYTES % (AUTO) 27.9 % (20.5-51.5); MEAN CORPUSCULAR HEMOGLOBIN 27 pg (27-31); MEAN CORPUSCULAR HGB CONC 32 % (32-36); MEAN CORPUSCULAR VOLUME 83 fL (79.0-98.0); MONOCYTES # (AUTO) 0.5 K/uL (0.0-1.0); MONOCYTES % (AUTO) 7.9 % (1.7-9.3); NEUTROPHILS # (AUTO) 3.9 K/uL (1.8-7.7); PLATELET COUNT (AUTO) 228 K/uL (130-430); RED BLOOD CELL COUNT(AUTO) 3.19 MIL/uL (4.2-6.2); RED CELL DISTRIBUTION WIDTH 16.6 % (9.0-15.0); WHITE BLOOD COUNT (AUTO) 6.6 K/uL (4.8-10.8)
[2016-10-20 10:46] LABS: CALCIUM 8.4 mg/dL (8.4-11.0); CREATININE 3.35 mg/dL (0.55-1.30)
[2016-10-20 10:50] LABS: PROTHROMBIN TIME 10.4 SECS (9.5-12.5)
[2016-10-20 10:52] LABS: POTASSIUM 6.7 mmol/L (3.5-5.1)
[2016-10-20 10:53] LABS: TOTAL BILIRUBIN 0.5 mg/dL (0.0-1.0)
[2016-10-20 10:54] LABS: ALBUMIN 2.6 g/dL (3.4-4.8); TOTAL PROTEIN, SERUM 6.9 g/dL (6.4-8.3)
[2016-10-20] MEDS ORDERED: ASCO500T20 PO (10:56)
[2016-10-20] MEDS ORDERED: INSU100V32 SUBCUT (10:56)
[2016-10-20] MEDS ORDERED: DARU1TAB PO (10:56)
[2016-10-20] MEDS ORDERED: MULT-1184 PO (10:56)
[2016-10-20] MEDS ORDERED: INSULIN REGULAR, HUMAN 10 UNITS/0.1 ML INJ IVP ONE (11:15)
[2016-10-20] MEDS ORDERED: DEXTROSE 50% JECT 50 ML DISP.SYRIN IVP ONE (11:15)
[2016-10-20] MEDS ORDERED: NACL 0.9% 1,000 ML IV ONE (11:30)
[2016-10-20] MEDS ORDERED: SODIUM POLYSTYRENE SULFONATE 15 GM/60 ML UDBTL PO ONE (12:00)
[2016-10-20] MEDS ORDERED: SODIUM POLYSTYRENE SULFONATE 15 GM/60 ML UDBTL ONE (12:07)
[2016-10-20] MEDS ORDERED: IPRA3AMP9 INH (12:19)
[2016-10-20] MEDS ORDERED: ANT30 PO (12:19)
[2016-10-20] MEDS ORDERED: MAGN400O4 PO (12:19)
[2016-10-20] MEDS ORDERED: ACET-2165 PO (12:19)
[2016-10-20] MEDS ORDERED: ACET325T53 PO (12:19)
[2016-10-20] MEDS ORDERED: DULR10 RC (12:19)
[2016-10-20] MEDS ORDERED: OXYC-130 PO (12:19)
[2016-10-20] MEDS ORDERED: NA P118E RC (12:19)
[2016-10-20] MEDS ORDERED: TYLL650 PO (12:19)
[2016-10-20 12:31] VITALS: BP_SYST 119
[2016-10-20 12:33] LABS: BILIRUBIN,URINE NEGATIVE (NEGATIVE); BLOOD, URINE 2+ (NEGATIVE); CLARITY/URINE HAZY (CLEAR); COLOR,URINE YELLOW (YELLOW); GLUCOSE,URINE NEGATIVE (NEGATIVE); KETONES,URINE NEGATIVE (NEGATIVE); LEUKOCYTE ESTERASE ,URINE NEGATIVE (NEGATIVE); NITRITE, URINE NEGATIVE (NEGATIVE); PH,URINE 5.5 (5.0-8.0); PROTEIN URINE 1+ (NEGATIVE); UROBILINOGEN,URINE 0.2 (0.2-1.0)
[2016-10-20 13:04] LABS: BACTERIA,URINE RARE /HPF (None Seen); WBC,URINE 0-3 /HPF (0-3)
[2016-10-20 13:05] LABS: CALCIUM OXALATE CRYSTALS,UR 0-10 /HPF (None Seen); FINE GRANULAR CASTS,URINE 0-10 /LPF (None Seen); URINE AMORPHOUS URATE 1+ /HPF (None Seen)
[2016-10-20] MEDS: D5NS 1,000 ML IV SCH ×2 (13:45→21:47)
[2016-10-20] MEDS ORDERED: IPRATROPIUM BROM 0.5 MG/2.5 ML VIAL.NEB (ATROVENT) INH PRN (15:00)
[2016-10-20] MEDS ORDERED: DEXTROSE 50% JECT 50 ML DISP.SYRIN IVP PRN (15:00)
[2016-10-20] MEDS ORDERED: PANTOPRAZOLE SODIUM 40 MG/VIAL (PROTONIX) IVP ONE (15:00)
[2016-10-20] MEDS ORDERED: ALBUTEROL SULFATE 0.083% 2.5 MG/3 ML VIAL.NEB INH PRN (15:00)
[2016-10-20] MEDS: ALBUTEROL SULFATE 0.083% 2.5 MG/3 ML VIAL.NEB INH SCH ×3 (16:13→23:00)
[2016-10-20] MEDS: IPRATROPIUM BROM 0.5 MG/2.5 ML VIAL.NEB (ATROVENT) INH SCH ×3 (16:13→23:00)
[2016-10-20 16:52] VITALS: BP_SYST 119
[2016-10-20 16:59] VITALS: BP_SYST 121
[2016-10-20 17:09] LABS: HEMATOCRIT 27.5 % (36-54); HEMOGLOBIN 8.9 g/dL (14.0-18.0)
[2016-10-20 21:45] VITALS: BP_SYST 133
[2016-10-20] MEDS: PANTOPRAZOLE SODIUM 40 MG/VIAL (PROTONIX) IVP SCH (21:47)
[2016-10-20 22:25] LABS: CALCIUM 7.8 mg/dL (8.4-11.0); CREATININE 2.77 mg/dL (0.55-1.30); POTASSIUM 5.2 mmol/L (3.5-5.1)
[2016-10-20 22:37] LABS: HEMATOCRIT 25.5 % (36-54)
[2016-10-21 02:00] VITALS: BP_SYST 122
[2016-10-21] MEDS: ALBUTEROL SULFATE 0.083% 2.5 MG/3 ML VIAL.NEB INH SCH ×6 (03:00→23:41)
[2016-10-21] MEDS: IPRATROPIUM BROM 0.5 MG/2.5 ML VIAL.NEB (ATROVENT) INH SCH ×6 (03:00→23:41)
[2016-10-21 03:18] LABS: HEMATOCRIT 27.6 % (36-54); HEMOGLOBIN 8.7 g/dL (14.0-18.0)
[2016-10-21 06:00] VITALS: BP_SYST 123
[2016-10-21 06:52] LABS: ALBUMIN 2.4 g/dL (3.4-4.8); CALCIUM 7.9 mg/dL (8.4-11.0); CREATININE 2.55 mg/dL (0.55-1.30); POTASSIUM 4.9 mmol/L (3.5-5.1); TOTAL BILIRUBIN 0.4 mg/dL (0.0-1.0); TOTAL PROTEIN, SERUM 6.7 g/dL (6.4-8.3)
[2016-10-21 08:00] VITALS: BP_SYST 125
[2016-10-21] MEDS: D5NS 1,000 ML IV SCH ×2 (08:00→17:50)
[2016-10-21 09:16] LABS: HEMATOCRIT 25.3 % (36-54); HEMOGLOBIN 7.9 g/dL (14.0-18.0)
[2016-10-21] MEDS: PANTOPRAZOLE SODIUM 40 MG/VIAL (PROTONIX) IVP SCH ×2 (10:04→21:30)
[2016-10-21 12:14] VITALS: BP_SYST 120
[2016-10-21] MEDS ORDERED: fentaNYL CITRATE/PF 100 MCG/2 ML AMP ONE (13:14)
[2016-10-21] MEDS ORDERED: SIMETHICONE 40 MG/0.6 ML ML ONE (13:15)
[2016-10-21] MEDS ORDERED: MIDAZOLAM HCL 5 MG/5 ML VIAL ONE (13:15)
[2016-10-21] MEDS ORDERED: methylPREDNISolone SOD SUCC/PF 62.5 MG/ML VIAL IVP SCH (14:15)
[2016-10-21 15:57] LABS: HEMATOCRIT 25.9 % (36-54); HEMOGLOBIN 8.3 g/dL (14.0-18.0)
[2016-10-21 16:16] VITALS: BP_SYST 118
[2016-10-21] MEDS ORDERED: BISACODYL 5 MG TABLET.DR (DULCOLAX) PO ONE (17:00)
[2016-10-21] MEDS ORDERED: GOLYTELY / COLYTE SOLUTION 4 LITERS PO ONE (18:00)
[2016-10-21 21:26] LABS: HEMATOCRIT 25.3 % (36-54)
[2016-10-21] MEDS: SELZENTRY PO SCH (21:30)
[2016-10-21] MEDS: ISENTRESS 400 MG PO SCH (21:31)
[2016-10-21 23:35] VITALS: BP_SYST 125
[2016-10-22 03:19] LABS: BASOPHILS # (AUTO) 0.1 K/uL (0.0-0.2); EOSINOPHILS # (AUTO) 0.3 K/uL (0.0-0.4); EOSINOPHILS % (AUTO) 4.6 % (0.0-4.0); HEMATOCRIT 25.2 % (36-54); HEMOGLOBIN 8.1 g/dL (14.0-18.0); LYMPHOCYTES # (AUTO) 1.6 K/uL (1.0-5.5); LYMPHOCYTES % (AUTO) 27.8 % (20.5-51.5); MEAN CORPUSCULAR HEMOGLOBIN 26 pg (27-31); MEAN CORPUSCULAR HGB CONC 32 % (32-36); MEAN CORPUSCULAR VOLUME 82 fL (79.0-98.0); MONOCYTES # (AUTO) 0.5 K/uL (0.0-1.0); MONOCYTES % (AUTO) 7.8 % (1.7-9.3); NEUTROPHILS # (AUTO) 3.4 K/uL (1.8-7.7); NEUTROPHILS % (AUTO) 57.8 % (40.0-70.0); PLATELET COUNT (AUTO) 268 K/uL (130-430); RED BLOOD CELL COUNT(AUTO) 3.06 MIL/uL (4.2-6.2); RED CELL DISTRIBUTION WIDTH 16.4 % (9.0-15.0); WHITE BLOOD COUNT (AUTO) 5.9 K/uL (4.8-10.8)
[2016-10-22 03:32] LABS: ALBUMIN 2.3 g/dL (3.4-4.8); CALCIUM 7.7 mg/dL (8.4-11.0); CREATININE 1.73 mg/dL (0.55-1.30); POTASSIUM 4.7 mmol/L (3.5-5.1); TOTAL BILIRUBIN 0.3 mg/dL (0.0-1.0); TOTAL PROTEIN, SERUM 6.5 g/dL (6.4-8.3)
[2016-10-22] MEDS: IPRATROPIUM BROM 0.5 MG/2.5 ML VIAL.NEB (ATROVENT) INH SCH ×6 (03:38→23:14)
[2016-10-22] MEDS: ALBUTEROL SULFATE 0.083% 2.5 MG/3 ML VIAL.NEB INH SCH ×6 (03:38→23:14)
[2016-10-22 05:01] VITALS: BP_SYST 134
[2016-10-22] MEDS: D5NS 1,000 ML IV SCH (05:07)
[2016-10-22 08:00] VITALS: BP_SYST 131
[2016-10-22] MEDS ORDERED: methylPREDNISolone SOD SUCC/PF 62.5 MG/ML VIAL IVP SCH (09:00)
[2016-10-22] MEDS: PANTOPRAZOLE SODIUM 40 MG/VIAL (PROTONIX) IVP SCH ×2 (09:43→20:17)
[2016-10-22] MEDS: SELZENTRY PO SCH ×2 (09:44→20:17)
[2016-10-22] MEDS: ISENTRESS 400 MG PO SCH ×2 (09:44→20:16)
[2016-10-22] MEDS: PREZCOBIX 800 MG PO SCH (09:44)
[2016-10-22] MEDS ORDERED: FUROSEMIDE 20 MG/2 ML VIAL IVP ONE (09:45)
[2016-10-22] MEDS: NACL 0.9% 1,000 ML IV SCH ×2 (11:13→23:52)
[2016-10-22 12:44] VITALS: BP_SYST 128
[2016-10-22] MEDS: ACETAMINOPHEN 325 MG TABLET PO PRN (13:14)
[2016-10-22 15:18] LABS: HEMATOCRIT 26.9 % (36-54); HEMOGLOBIN 8.7 g/dL (14.0-18.0)
[2016-10-22 16:22] VITALS: BP_SYST 131
[2016-10-22] MEDS: INSULIN REGULAR, HUMAN 100 UNITS/ML, 10 ML VIAL (novoLIN R) SUBCUT PRN ×2 (17:37→23:14)
[2016-10-22 21:22] LABS: HEMATOCRIT 27.1 % (36-54); HEMOGLOBIN 8.7 g/dL (14.0-18.0)
[2016-10-23] VITALS (7 sets, daily range): BP systolic 125–139
[2016-10-23] MEDS ORDERED: TEMAZEPAM 15 MG CAPSULE PO PRN (01:30)
[2016-10-23] MEDS: ACETAMINOPHEN 325 MG TABLET PO PRN ×4 (06:50→21:05)
[2016-10-23] MEDS: IPRATROPIUM BROM 0.5 MG/2.5 ML VIAL.NEB (ATROVENT) INH SCH ×5 (07:16→23:00)
[2016-10-23] MEDS: ALBUTEROL SULFATE 0.083% 2.5 MG/3 ML VIAL.NEB INH SCH ×5 (07:16→23:00)
[2016-10-23 07:23] LABS: ALBUMIN 3.1 g/dL (3.4-4.8); CALCIUM 8.9 mg/dL (8.4-11.0); CREATININE 1.78 mg/dL (0.55-1.30); POTASSIUM 5.2 mmol/L (3.5-5.1); TOTAL BILIRUBIN 0.6 mg/dL (0.0-1.0); TOTAL PROTEIN, SERUM 8.3 g/dL (6.4-8.3)
[2016-10-23 07:28] LABS: BASOPHILS % (AUTO) 0.3 % (0.0-2.0); HEMATOCRIT 32.2 % (36-54); HEMOGLOBIN 10.5 g/dL (14.0-18.0); LYMPHOCYTES # (AUTO) 1.2 K/uL (1.0-5.5); LYMPHOCYTES % (AUTO) 7.3 % (20.5-51.5); MEAN CORPUSCULAR HEMOGLOBIN 27 pg (27-31); MEAN CORPUSCULAR HGB CONC 33 % (32-36); MEAN CORPUSCULAR VOLUME 83 fL (79.0-98.0); MONOCYTES # (AUTO) 1.1 K/uL (0.0-1.0); NEUTROPHILS # (AUTO) 13.9 K/uL (1.8-7.7); NEUTROPHILS % (AUTO) 85.4 % (40.0-70.0); PLATELET COUNT (AUTO) 363 K/uL (130-430); RED BLOOD CELL COUNT(AUTO) 3.88 MIL/uL (4.2-6.2); RED CELL DISTRIBUTION WIDTH 16.6 % (9.0-15.0); WHITE BLOOD COUNT (AUTO) 16.2 K/uL (4.8-10.8)
[2016-10-23] MEDS: PREZCOBIX 800 MG PO SCH (09:30)
[2016-10-23] MEDS: ISENTRESS 400 MG PO SCH ×2 (09:30→21:05)
[2016-10-23] MEDS: SELZENTRY PO SCH ×2 (09:30→21:06)
[2016-10-23] MEDS: PANTOPRAZOLE SODIUM 40 MG/VIAL (PROTONIX) IVP SCH ×2 (11:27→21:06)
[2016-10-23] MEDS: cefTRIAXone 1 GM in D5W 50 ML IV SCH (11:29)
[2016-10-23] MEDS: INSULIN REGULAR, HUMAN 100 UNITS/ML, 10 ML VIAL (novoLIN R) SUBCUT PRN ×2 (11:49→17:37)
[2016-10-24] VITALS: BP_SYST 134
[2016-10-24] MEDS: ACETAMINOPHEN 325 MG TABLET PO PRN ×2 (01:03→04:58)
[2016-10-24] MEDS: IPRATROPIUM BROM 0.5 MG/2.5 ML VIAL.NEB (ATROVENT) INH SCH ×4 (03:00→15:00)
[2016-10-24] MEDS: ALBUTEROL SULFATE 0.083% 2.5 MG/3 ML VIAL.NEB INH SCH ×4 (03:00→15:00)
[2016-10-24] MEDS: INSULIN REGULAR, HUMAN 100 UNITS/ML, 10 ML VIAL (novoLIN R) SUBCUT PRN (06:13)
[2016-10-24 06:52] LABS: BASOPHILS % (AUTO) 0.1 % (0.0-2.0); LYMPHOCYTES # (AUTO) 1.7 K/uL (1.0-5.5); LYMPHOCYTES % (AUTO) 10.6 % (20.5-51.5); MEAN CORPUSCULAR HEMOGLOBIN 26 pg (27-31); MEAN CORPUSCULAR HGB CONC 32 % (32-36); MEAN CORPUSCULAR VOLUME 82 fL (79.0-98.0); MONOCYTES # (AUTO) 0.9 K/uL (0.0-1.0); MONOCYTES % (AUTO) 5.8 % (1.7-9.3); NEUTROPHILS # (AUTO) 13.2 K/uL (1.8-7.7); NEUTROPHILS % (AUTO) 83.5 % (40.0-70.0); PLATELET COUNT (AUTO) 262 K/uL (130-430); RED BLOOD CELL COUNT(AUTO) 3.03 MIL/uL (4.2-6.2); RED CELL DISTRIBUTION WIDTH 16.8 % (9.0-15.0); WHITE BLOOD COUNT (AUTO) 15.8 K/uL (4.8-10.8)
[2016-10-24 07:47] LABS: ALBUMIN 2.6 g/dL (3.4-4.8); CALCIUM 8.3 mg/dL (8.4-11.0); CREATININE 1.55 mg/dL (0.55-1.30); TOTAL BILIRUBIN 0.5 mg/dL (0.0-1.0); TOTAL PROTEIN, SERUM 6.8 g/dL (6.4-8.3)
[2016-10-24] MEDS ORDERED: PREDNISONE 20 MG TABLET PO SCH (09:00)
[2016-10-24] MEDS: PANTOPRAZOLE SODIUM 40 MG/VIAL (PROTONIX) IVP SCH (09:17)
[2016-10-24] MEDS: PREZCOBIX 800 MG PO SCH (09:18)
[2016-10-24] MEDS: SELZENTRY PO SCH (09:19)
[2016-10-24] MEDS: ISENTRESS 400 MG PO SCH (09:19)
[2016-10-24] MEDS: cefTRIAXone 1 GM in D5W 50 ML IV SCH (09:23)
[2016-10-24 13:07] VITALS: BP_SYST 131
[2016-10-24] MEDS ORDERED: metroNIDAZOLE 250 mg/NS 50 ML IV SCH (14:00)
[2016-10-24 15:52] VITALS: BP_SYST 132
[2016-10-24 17:04] VITALS: BP_SYST 142
== END 2016-10-24 16:15 | DRG 377 ==
LOC: SED 09:47 → STU 11:52 → SMU 10-21 16:34 → STU 10-21 18:34
PROVIDERS: ADMIT Internal Medicine Hospice and Palliative Medicine; ATTEND Internal Medicine Hospice and Palliative Medicine
PROC: 0DB68ZX Excision of Stomach, Via Natural or Artificial Opening Endoscopic, Diagnostic (ICD-10-PCS; principal; 2016-10-21 13:30)
DX: K92.2 Gastrointestinal hemorrhage, unspecified (principal); N17.0 Acute kidney failure with tubular necrosis; D62 Acute posthemorrhagic anemia; E87.1 Hypo-osmolality and hyponatremia; L03.116 Cellulitis of left lower limb; T84.54XA Infection and inflammatory reaction due to internal left knee prosthesis, initial encounter; E87.6 Hypokalemia; I10 Essential (primary) hypertension; J44.9 Chronic obstructive pulmonary disease, unspecified; K29.70 Gastritis, unspecified, without bleeding; E87.5 Hyperkalemia; I25.10 Atherosclerotic heart disease of native coronary artery without angina pectoris; Z53.29 Procedure and treatment not carried out because of patient's decision for other reasons; E11.22 Type 2 diabetes mellitus with diabetic chronic kidney disease; Z96.652 Presence of left artificial knee joint; Y83.1 Surgical operation with implant of artificial internal device as the cause of abnormal reaction of the patient, or of later complication, without mention of misadventure at the time of the procedure; N18.9 Chronic kidney disease, unspecified; Z88.8 Allergy status to other drugs, medicaments and biological substances; Z86.718 Personal history of other venous thrombosis and embolism; Z79.01 Long term (current) use of anticoagulants; Z79.4 Long term (current) use of insulin; Z79.899 Other long term (current) drug therapy; Y92.89 Other specified places as the place of occurrence of the external cause
CPT/HCPCS: 36415; 71010; 80048; 80053; 81000-TC; 82272; 82962; 83605; 84484; 85018-TC; 85025; 85610-TC; 85730-TC; 87040-TC; 87081; 88305; 88312; 88313; 93005; 93970; 94640; 94760; 96361; 96374; 96375; 97116-GP; 97530-GP; 99285; C9113; J0696; J1815; J1940; J2250; J2930; J3010; J3490; J7030; J7042; J7060; J7512

== ENCOUNTER 2016-11-09 13:43 | Inpatient (IN) | payer OTHER, MEDICAID ==
[2016-11-09] VITALS (12 sets, daily range): BP systolic 129–155
[~2016-11-09] VITALS: Ht 177.8 cm; Wt 104.3 kg
[~2016-11-09 13:43] MED LIST changes: +ACET-2165 PO; +ACET325T53 PO; -ALBMDI INH; +ANT30 PO; +ASCO500T20 PO; -BECL8.7A5 INH; +DULR10 RC; -ENOX120D3 SQ; +ETOMIDATE 20 MG/ 10 ML VIAL (AMIDATE) IVP ONE; -FURO40TA5 PO; +INSU100V32 SUBCUT; +IPRA3AMP9 INH; +MAGN400O4 PO; +MULT-1184 PO; +NA P118E RC; +OXYC-130 PO; -OXYC-133 PO; +TYLL650 PO
[2016-11-09 14:17] LABS: BASOPHILS # (AUTO) 0.5 K/uL (0.0-0.2); BASOPHILS % (AUTO) 3.7 % (0.0-2.0); EOSINOPHILS # (AUTO) 0.6 K/uL (0.0-0.4); EOSINOPHILS % (AUTO) 4.1 % (0.0-4.0); HEMATOCRIT 33.3 % (36-54); HEMOGLOBIN 10.3 g/dL (14.0-18.0); LYMPHOCYTES # (AUTO) 3.4 K/uL (1.0-5.5); LYMPHOCYTES % (AUTO) 24.4 % (20.5-51.5); MEAN CORPUSCULAR HEMOGLOBIN 26 pg (27-31); MEAN CORPUSCULAR HGB CONC 31 % (32-36); MEAN CORPUSCULAR VOLUME 85 fL (79.0-98.0); MONOCYTES # (AUTO) 0.6 K/uL (0.0-1.0); MONOCYTES % (AUTO) 4.4 % (1.7-9.3); NEUTROPHILS # (AUTO) 8.7 K/uL (1.8-7.7); NEUTROPHILS % (AUTO) 63.4 % (40.0-70.0); PLATELET COUNT (AUTO) 283 K/uL (130-430); RED BLOOD CELL COUNT(AUTO) 3.93 MIL/uL (4.2-6.2); RED CELL DISTRIBUTION WIDTH 19.1 % (9.0-15.0); WHITE BLOOD COUNT (AUTO) 13.8 K/uL (4.8-10.8)
[2016-11-09 14:33] LABS: ANION GAP 5 (5-15); CALCIUM 8.3 mg/dL (8.4-11.0); CHLORIDE 113 mmol/L (98-107); CREATININE 2.73 mg/dL (0.55-1.30); GLUCOSE 63 mg/dL (70-99); SODIUM SERUM 145 mmol/L (136-145); UREA NITROGEN, BLOOD 26 mg/dL (8-21)
[2016-11-09 14:37] LABS: ALANINE AMINOTRANSFERASE 15 U/L (12-78); ALBUMIN 2.9 g/dL (3.4-4.8); ASPARTATE AMINOTRANSFERASE 21 U/L (10-37); CREATINE KINASE, TOTAL 35 U/L (39-308); SALICYLATE 2 mg/dL (3-30); TOTAL BILIRUBIN 0.3 mg/dL (0.0-1.0); TOTAL PROTEIN, SERUM 7.7 g/dL (6.4-8.3)
[2016-11-09 14:38] LABS: PROTHROMBIN TIME 11.1 SECS (9.5-12.5)
[2016-11-09 14:40] LABS: ALCOHOL, BLOOD < 3 mg/dL (<10); GFR AFRICAN AMERICAN 30 mL/min (>90)
[2016-11-09] MEDS ORDERED: IPRA3AMP9 INH (14:41)
[2016-11-09] MEDS ORDERED: METH500T PO (14:41)
[2016-11-09 14:42] LABS: POTASSIUM 6.6 mmol/L (3.5-5.1)
[2016-11-09] MEDS ORDERED: INSULIN REGULAR, HUMAN 10 UNITS/0.1 ML INJ IVP ONE (14:45)
[2016-11-09] MEDS ORDERED: CALCIUM CHLORIDE 1 GM in NS 100 ML IV ONE (14:45)
[2016-11-09] MEDS ORDERED: DEXTROSE 50% JECT 50 ML DISP.SYRIN IVP ONE (14:45)
[2016-11-09] MEDS ORDERED: SODIUM BICARBONATE 8.4% JECT 50 MEQ/50 ML SYRINGE IVP ONE (14:45)
[2016-11-09] MEDS ORDERED: NALOXONE HCL 2 MG/2 ML SYR IVP ONE (15:00)
[2016-11-09 15:25] LABS: ACETAMINOPHEN < 1 ug/mL (1-30)
[2016-11-09 15:34] LABS: BILIRUBIN,URINE NEGATIVE (NEGATIVE); BLOOD, URINE 2+ (NEGATIVE); CLARITY/URINE SLIGHTLY HAZY (CLEAR); COLOR,URINE YELLOW (YELLOW); GLUCOSE,URINE NEGATIVE (NEGATIVE); KETONES,URINE NEGATIVE (NEGATIVE); LEUKOCYTE ESTERASE ,URINE NEGATIVE (NEGATIVE); NITRITE, URINE POSITIVE (NEGATIVE); PH,URINE 5.5 (5.0-8.0); PROTEIN URINE 2+ (NEGATIVE); UROBILINOGEN,URINE 0.2 (0.2-1.0)
[2016-11-09 15:41] LABS: BACTERIA,URINE MANY /HPF (None Seen); COARSE GRANULAR CASTS,URINE 0-10 /LPF (None Seen); MUCUS,URINE None Seen /LPF (None Seen); URIC ACID CRYSTALS,URINE 70-100 /HPF (None Seen)
[2016-11-09] MEDS ORDERED: ETOMIDATE 20 MG/ 10 ML VIAL (AMIDATE) IVP ONE (15:45)
[2016-11-09] MEDS ORDERED: D5/0.45 NS 1,000 ML IV SCH (15:45)
[2016-11-09] MEDS ORDERED: VANCOMYCIN HCL 1,000 MG in NS 250 ML IV ONE (15:45)
[2016-11-09] MEDS ORDERED: PIPERACILLIN/TAZOBACTAM 2.25 GM in NS 50 ML IV ONE (15:45)
[2016-11-09] MEDS ORDERED: ROCURONIUM BROMIDE 10 MG/ML (ZEMURON) IV ONE (15:45)
[2016-11-09 15:46] LABS: BARBITURATE, URINE NEGATIVE (NEG <=200); BENZODIAZEPINE, URINE NEGATIVE (NEG <=150); CANNABINOID, URINE NEGATIVE (NEG <=50); COCAINE, URINE NEGATIVE (NEG <=150); METHAMPHETAMINES SCREEN,URINE NEGATIVE (NEG <=500); OPIATE, URINE NEGATIVE (NEG <=100); PHENCYCLIDINE SCREEN,URINE NEGATIVE (NEG <=25); UR TRICYCLIC ANTIDEPRESSANTS NEGATIVE (NEG <=300); URINE AMPHETAMINE NEGATIVE (NEG <=500); URINE METHADONE NEGATIVE (NEG <=200); URINE OXYCODONE SCREEN POSITIVE (NEG <=100); URINE PROPOXYPHENE SCREEN NEGATIVE (NEG <=300)
[2016-11-09] MEDS ORDERED: PIPERACILLIN/TAZOBACTAM 2.25 GM VIAL IV ONE (15:56)
[2016-11-09] MEDS ORDERED: VANCOMYCIN HCL 1000 MG/VIAL IV ONE (16:09)
[2016-11-09 16:56] LABS: BLOOD GAS BASE EXCESS 0.6 mmol/L (-3.0-3.0); BLOOD GAS PH 7.324 (7.350-7.450)
[2016-11-09 16:57] LABS: ABG TOTAL HEMOGLOBIN 9.3 G/dL (12.0-18.0); BLOOD GAS COHb% 0.9 % (0.5-1.5); BLOOD GAS HHB 1.2 % (0.0-6.0); BLOOD O2Hb% 97.2 % (94.0-97.0)
[2016-11-09] MEDS ORDERED: PIPERACILLIN/TAZO 2.25G/DEX-IS 50 ML IV SCH (18:00)
[2016-11-09] MEDS ORDERED: SODIUM POLYSTYRENE SULFONATE 15 GM/60 ML UDBTL PO ONE (18:00)
[2016-11-09] MEDS ORDERED: DEXTROSE 50% JECT 50 ML DISP.SYRIN IVP PRN (18:00)
[2016-11-09] MEDS ORDERED: DEXTROSE 50% JECT 50 ML DISP.SYRIN ONE (18:47)
[2016-11-09] MEDS: IPRATROPIUM BROM 0.5 MG/2.5 ML VIAL.NEB (ATROVENT) INH SCH (19:25)
[2016-11-09] MEDS: ALBUTEROL SULFATE 0.083% 2.5 MG/3 ML VIAL.NEB INH SCH (19:25)
[2016-11-09] MEDS: LORazepam 2 MG/ML VIAL IVP PRN ×2 (19:36→23:15)
[2016-11-09] MEDS: MORPHINE 4 MG/ML INJ. SYRINGE IVP PRN (19:38)
[2016-11-09] MEDS: methylPREDNISolone SOD SUCC 40 MG/ML VIAL IVP SCH (20:06)
[2016-11-09] MEDS: PIPERACILLIN/TAZO 2.25G/DEX-IS 50 ML IV SCH (20:19)
[2016-11-09] MEDS ORDERED: FUROSEMIDE 40 MG/4 ML VIAL IVP ONE (21:30)
[2016-11-09] MEDS ORDERED: ACETAMINOPHEN 325 MG TABLET PO PRN (21:45)
[2016-11-09 22:37] LABS: BASOPHILS % (AUTO) 0.5 % (0.0-2.0); EOSINOPHILS # (AUTO) 0.2 K/uL (0.0-0.4); EOSINOPHILS % (AUTO) 2.1 % (0.0-4.0); HEMATOCRIT 28.6 % (36-54); HEMOGLOBIN 8.7 g/dL (14.0-18.0); LYMPHOCYTES # (AUTO) 1.4 K/uL (1.0-5.5); LYMPHOCYTES % (AUTO) 17.7 % (20.5-51.5); MEAN CORPUSCULAR HEMOGLOBIN 25 pg (27-31); MEAN CORPUSCULAR HGB CONC 30 % (32-36); MEAN CORPUSCULAR VOLUME 84 fL (79.0-98.0); MONOCYTES # (AUTO) 0.3 K/uL (0.0-1.0); MONOCYTES % (AUTO) 3.8 % (1.7-9.3); NEUTROPHILS # (AUTO) 6.3 K/uL (1.8-7.7); NEUTROPHILS % (AUTO) 75.9 % (40.0-70.0); PLATELET COUNT (AUTO) 191 K/uL (130-430); RED BLOOD CELL COUNT(AUTO) 3.42 MIL/uL (4.2-6.2); WHITE BLOOD COUNT (AUTO) 8.2 K/uL (4.8-10.8)
[2016-11-09] MEDS: HEPARIN SODIUM,PORCINE 5000 UNITS/ML VIAL SUBCUT SCH (22:41)
[2016-11-09] MEDS: LEVOFLOXACIN 500 MG/D5W 100 ML IV SCH (22:54)
[2016-11-10] VITALS (36 sets, daily range): BP systolic 115–158
[2016-11-10 00:31] LABS: CALCIUM 8.2 mg/dL (8.4-11.0); CREATININE 2.82 mg/dL (0.55-1.30); POTASSIUM 4.9 mmol/L (3.5-5.1)
[2016-11-10 00:37] LABS: ALBUMIN 2.5 g/dL (3.4-4.8); TOTAL BILIRUBIN 0.5 mg/dL (0.0-1.0); TOTAL PROTEIN, SERUM 6.4 g/dL (6.4-8.3)
[2016-11-10] MEDS: ALBUTEROL SULFATE 0.083% 2.5 MG/3 ML VIAL.NEB INH SCH ×4 (01:21→19:13)
[2016-11-10] MEDS: IPRATROPIUM BROM 0.5 MG/2.5 ML VIAL.NEB (ATROVENT) INH SCH ×4 (01:22→19:13)
[2016-11-10] MEDS: MORPHINE 4 MG/ML INJ. SYRINGE IVP PRN ×4 (01:36→22:25)
[2016-11-10] MEDS: LORazepam 2 MG/ML VIAL IVP PRN ×7 (01:37→23:13)
[2016-11-10] MEDS: PIPERACILLIN/TAZO 2.25G/DEX-IS 50 ML IV SCH ×4 (04:20→21:26)
[2016-11-10 06:36] LABS: BASOPHILS % (AUTO) 0.3 % (0.0-2.0); EOSINOPHILS % (AUTO) 0.5 % (0.0-4.0); HEMATOCRIT 26.5 % (36-54); HEMOGLOBIN 8.2 g/dL (14.0-18.0); LYMPHOCYTES # (AUTO) 1.4 K/uL (1.0-5.5); LYMPHOCYTES % (AUTO) 23.6 % (20.5-51.5); MEAN CORPUSCULAR HEMOGLOBIN 26 pg (27-31); MEAN CORPUSCULAR HGB CONC 31 % (32-36); MEAN CORPUSCULAR VOLUME 83 fL (79.0-98.0); MONOCYTES # (AUTO) 0.1 K/uL (0.0-1.0); MONOCYTES % (AUTO) 1.2 % (1.7-9.3); NEUTROPHILS # (AUTO) 4.3 K/uL (1.8-7.7); NEUTROPHILS % (AUTO) 74.4 % (40.0-70.0); PLATELET COUNT (AUTO) 174 K/uL (130-430); RED BLOOD CELL COUNT(AUTO) 3.19 MIL/uL (4.2-6.2); WHITE BLOOD COUNT (AUTO) 5.8 K/uL (4.8-10.8)
[2016-11-10] MEDS: HEPARIN SODIUM,PORCINE 5000 UNITS/ML VIAL SUBCUT SCH ×3 (06:42→21:26)
[2016-11-10 07:11] LABS: CALCIUM 8.4 mg/dL (8.4-11.0); CREATININE 2.84 mg/dL (0.55-1.30); POTASSIUM 4.7 mmol/L (3.5-5.1)
[2016-11-10 07:20] LABS: ALBUMIN 2.4 g/dL (3.4-4.8); TOTAL BILIRUBIN 0.5 mg/dL (0.0-1.0); TOTAL PROTEIN, SERUM 6.3 g/dL (6.4-8.3)
[2016-11-10 08:06] LABS: BLOOD GAS PH 7.109 (7.350-7.450)
[2016-11-10 08:07] LABS: ABG TOTAL HEMOGLOBIN 10.9 G/dL (12.0-18.0); BLOOD GAS BASE EXCESS -2.7 mmol/L (-3.0-3.0); BLOOD GAS COHb% 0.9 % (0.5-1.5); BLOOD GAS HHB 3.3 % (0.0-6.0); BLOOD O2Hb% 95.4 % (94.0-97.0)
[2016-11-10] MEDS: PANTOPRAZOLE SODIUM 40 MG/VIAL (PROTONIX) IVP SCH (08:42)
[2016-11-10] MEDS: FUROSEMIDE 40 MG/4 ML VIAL IVP SCH ×2 (08:43→20:50)
[2016-11-10] MEDS: methylPREDNISolone SOD SUCC 40 MG/ML VIAL IVP SCH ×2 (08:43→20:50)
[2016-11-10] MEDS: LISINOPRIL 5 MG TABLET PO SCH (08:46)
[2016-11-10] MEDS: ASCORBIC ACID 500 MG TABLET PO SCH (08:46)
[2016-11-10] MEDS: PREGABALIN 25 MG CAPSULE (LYRICA) PO SCH ×2 (09:00→20:55)
[2016-11-10 09:38] LABS: ABG TOTAL HEMOGLOBIN 9.8 G/dL (12.0-18.0); BLOOD GAS BASE EXCESS 2.9 mmol/L (-3.0-3.0); BLOOD GAS COHb% 0.4 % (0.5-1.5); BLOOD GAS HHB 7.3 % (0.0-6.0); BLOOD GAS PH 7.382 (7.350-7.450)
[2016-11-10] MEDS: MORPHINE 2 MG/ML INJ. SYRINGE IVP PRN ×2 (10:55→14:18)
[2016-11-10] MEDS ORDERED: PROCHLORPERAZINE MALEATE 25 MG/SUPP.RECT EA RC ONE (11:01)
[2016-11-10] MEDS: INSULIN ASPART 100 UNITS/ML, 10 ML VIAL (NovoLOG) SUBCUT PRN (16:39)
[2016-11-10] MEDS: ALBUTEROL SULFATE 0.083% 2.5 MG/3 ML VIAL.NEB INH PRN (17:25)
[2016-11-10] MEDS: IPRATROPIUM BROM 0.5 MG/2.5 ML VIAL.NEB (ATROVENT) INH PRN (17:25)
[2016-11-10] MEDS ORDERED: COMMUNICATION ORDER XX SCH ×3 (19:00→21:00)
[2016-11-10] MEDS ORDERED: PREGABALIN 75 MG CAPSULE (LYRICA) ONE (20:42)
[2016-11-10] MEDS ORDERED: PREGABALIN 25 MG CAPSULE (LYRICA) ONE ×2 (20:43→20:45)
[2016-11-10] MEDS: SIMVASTATIN 40 MG TABLET PO SCH (20:48)
[2016-11-10] MEDS: LEVOFLOXACIN 500 MG/D5W 100 ML IV SCH (20:51)
[2016-11-10] MEDS: ANTIFUNGAL CLEAR OINTMENT TP SCH (20:52)
[2016-11-10] MEDS: MARAVIROC 150 MG NG SCH (21:27)
[2016-11-11] VITALS (34 sets, daily range): BP systolic 141–181
[2016-11-11] MEDS: INSULIN ASPART 100 UNITS/ML, 10 ML VIAL (NovoLOG) SUBCUT PRN ×4 (00:10→15:58)
[2016-11-11] MEDS: MORPHINE 4 MG/ML INJ. SYRINGE IVP PRN ×2 (00:43→03:29)
[2016-11-11] MEDS: ALBUTEROL SULFATE 0.083% 2.5 MG/3 ML VIAL.NEB INH SCH ×4 (01:15→19:30)
[2016-11-11] MEDS: IPRATROPIUM BROM 0.5 MG/2.5 ML VIAL.NEB (ATROVENT) INH SCH ×4 (01:15→19:30)
[2016-11-11] MEDS: LORazepam 2 MG/ML VIAL IVP PRN ×2 (02:14→03:28)
[2016-11-11] MEDS: PIPERACILLIN/TAZO 2.25G/DEX-IS 50 ML IV SCH ×4 (04:21→22:59)
[2016-11-11] MEDS: HEPARIN SODIUM,PORCINE 5000 UNITS/ML VIAL SUBCUT SCH ×3 (05:48→23:42)
[2016-11-11 07:02] LABS: BASOPHILS % (AUTO) 0.1 % (0.0-2.0); HEMATOCRIT 24.9 % (36-54); HEMOGLOBIN 7.7 g/dL (14.0-18.0); LYMPHOCYTES # (AUTO) 0.8 K/uL (1.0-5.5); LYMPHOCYTES % (AUTO) 21.4 % (20.5-51.5); MEAN CORPUSCULAR HEMOGLOBIN 26 pg (27-31); MEAN CORPUSCULAR HGB CONC 31 % (32-36); MEAN CORPUSCULAR VOLUME 83 fL (79.0-98.0); MONOCYTES # (AUTO) 0.2 K/uL (0.0-1.0); MONOCYTES % (AUTO) 4.9 % (1.7-9.3); NEUTROPHILS # (AUTO) 2.6 K/uL (1.8-7.7); NEUTROPHILS % (AUTO) 73.6 % (40.0-70.0); PLATELET COUNT (AUTO) 189 K/uL (130-430); RED BLOOD CELL COUNT(AUTO) 2.98 MIL/uL (4.2-6.2); RED CELL DISTRIBUTION WIDTH 19.2 % (9.0-15.0)
[2016-11-11 07:05] LABS: WHITE BLOOD COUNT (AUTO) 3.6 K/uL (4.8-10.8)
[2016-11-11 07:12] LABS: ALBUMIN 2.5 g/dL (3.4-4.8); CALCIUM 8.4 mg/dL (8.4-11.0); CREATININE 3.04 mg/dL (0.55-1.30); POTASSIUM 4.3 mmol/L (3.5-5.1); TOTAL BILIRUBIN 0.3 mg/dL (0.0-1.0); TOTAL PROTEIN, SERUM 6.6 g/dL (6.4-8.3)
[2016-11-11 07:18] LABS: ABG TOTAL HEMOGLOBIN 8.8 G/dL (12.0-18.0); BLOOD GAS BASE EXCESS 2.9 mmol/L (-3.0-3.0); BLOOD GAS COHb% 0.2 % (0.5-1.5); BLOOD GAS HHB 6.1 % (0.0-6.0); BLOOD GAS PH 7.408 (7.350-7.450); BLOOD O2Hb% 93.3 % (94.0-97.0)
[2016-11-11] MEDS: PANTOPRAZOLE SODIUM 40 MG/VIAL (PROTONIX) IVP SCH (09:27)
[2016-11-11] MEDS: methylPREDNISolone SOD SUCC 40 MG/ML VIAL IVP SCH ×2 (09:27→20:50)
[2016-11-11] MEDS: FUROSEMIDE 40 MG/4 ML VIAL IVP SCH (09:28)
[2016-11-11] MEDS: LISINOPRIL 5 MG TABLET PO SCH (09:31)
[2016-11-11] MEDS: ASCORBIC ACID 500 MG TABLET PO SCH (09:31)
[2016-11-11] MEDS: PREZCOBIX NG SCH (09:32)
[2016-11-11] MEDS: MARAVIROC 150 MG NG SCH ×2 (09:32→20:54)
[2016-11-11 11:31] LABS: HEPATITIS B CORE AB, TOTAL Negative (Negative); HEPATITIS B SURFACE AG Negative (Negative); HEPATITIS C VIRUS AB <0.1 s/co ratio (0.0-0.9)
[2016-11-11] MEDS ORDERED: PREGABALIN 25 MG CAPSULE (LYRICA) PO ONE (11:45)
[2016-11-11] MEDS ORDERED: PREGABALIN 75 MG CAPSULE (LYRICA) PO ONE (11:45)
[2016-11-11] MEDS: ANTIFUNGAL CLEAR OINTMENT TP SCH ×2 (12:01→23:50)
[2016-11-11] MEDS: PROCHLORPERAZINE MALEATE 10 MG TABLET PO PRN (13:36)
[2016-11-11] MEDS: MORPHINE 2 MG/ML INJ. SYRINGE IVP PRN (13:37)
[2016-11-11] MEDS ORDERED: ALLOPURINOL 100 MG TABLET (ZYLOPRIM) PO ONE (13:45)
[2016-11-11] MEDS: BALSAM PERU/CASTOR OIL 60 GM OINT...G. TP SCH (15:52)
[2016-11-11] MEDS: LEVOFLOXACIN 500 MG/D5W 100 ML IV SCH (20:43)
[2016-11-11] MEDS: PREGABALIN 75 MG CAPSULE (LYRICA) PO SCH (20:49)
[2016-11-11] MEDS: PREGABALIN 25 MG CAPSULE (LYRICA) PO SCH (20:49)
[2016-11-11] MEDS: SIMVASTATIN 40 MG TABLET PO SCH (20:49)
[2016-11-12] VITALS (31 sets, daily range): BP systolic 148–174
[2016-11-12] MEDS: IPRATROPIUM BROM 0.5 MG/2.5 ML VIAL.NEB (ATROVENT) INH SCH ×4 (00:04→19:56)
[2016-11-12] MEDS: ALBUTEROL SULFATE 0.083% 2.5 MG/3 ML VIAL.NEB INH SCH ×4 (00:04→19:56)
[2016-11-12] MEDS: LORazepam 2 MG/ML VIAL IVP PRN (01:04)
[2016-11-12] MEDS: MORPHINE 4 MG/ML INJ. SYRINGE IVP PRN (01:06)
[2016-11-12] MEDS: INSULIN ASPART 100 UNITS/ML, 10 ML VIAL (NovoLOG) SUBCUT PRN ×4 (01:44→17:21)
[2016-11-12] MEDS: PIPERACILLIN/TAZO 2.25G/DEX-IS 50 ML IV SCH ×4 (05:02→22:51)
[2016-11-12] MEDS: HEPARIN SODIUM,PORCINE 5000 UNITS/ML VIAL SUBCUT SCH ×3 (06:08→22:58)
[2016-11-12 07:07] LABS: BASOPHILS % (AUTO) 0.1 % (0.0-2.0); EOSINOPHILS % (AUTO) 0.1 % (0.0-4.0); HEMATOCRIT 26.5 % (36-54); HEMOGLOBIN 8.3 g/dL (14.0-18.0); LYMPHOCYTES # (AUTO) 0.6 K/uL (1.0-5.5); MEAN CORPUSCULAR HEMOGLOBIN 26 pg (27-31); MEAN CORPUSCULAR HGB CONC 31 % (32-36); MEAN CORPUSCULAR VOLUME 83 fL (79.0-98.0); MONOCYTES # (AUTO) 0.2 K/uL (0.0-1.0); MONOCYTES % (AUTO) 3.7 % (1.7-9.3); NEUTROPHILS # (AUTO) 3.6 K/uL (1.8-7.7); NEUTROPHILS % (AUTO) 83.1 % (40.0-70.0); PLATELET COUNT (AUTO) 204 K/uL (130-430); RED BLOOD CELL COUNT(AUTO) 3.21 MIL/uL (4.2-6.2); RED CELL DISTRIBUTION WIDTH 18.5 % (9.0-15.0); WHITE BLOOD COUNT (AUTO) 4.4 K/uL (4.8-10.8)
[2016-11-12 07:24] LABS: ALBUMIN 2.8 g/dL (3.4-4.8); CALCIUM 7.9 mg/dL (8.4-11.0); CREATININE 2.86 mg/dL (0.55-1.30); POTASSIUM 4.1 mmol/L (3.5-5.1); TOTAL BILIRUBIN 0.4 mg/dL (0.0-1.0); TOTAL PROTEIN, SERUM 6.8 g/dL (6.4-8.3)
[2016-11-12 08:26] LABS: ABG TOTAL HEMOGLOBIN 9.2 G/dL (12.0-18.0); BLOOD GAS BASE EXCESS 3.4 mmol/L (-3.0-3.0); BLOOD GAS COHb% 1.3 % (0.5-1.5); BLOOD GAS HHB 6.9 % (0.0-6.0); BLOOD GAS PH 7.425 (7.350-7.450); BLOOD O2Hb% 91.3 % (94.0-97.0)
[2016-11-12] MEDS: ALLOPURINOL 100 MG TABLET (ZYLOPRIM) PO SCH (08:42)
[2016-11-12] MEDS: PANTOPRAZOLE SODIUM 40 MG/VIAL (PROTONIX) IVP SCH (08:42)
[2016-11-12] MEDS: ASCORBIC ACID 500 MG TABLET PO SCH (08:42)
[2016-11-12] MEDS: methylPREDNISolone SOD SUCC 40 MG/ML VIAL IVP SCH ×2 (08:42→22:44)
[2016-11-12] MEDS: FUROSEMIDE 20 MG/2 ML VIAL IVP SCH (08:42)
[2016-11-12] MEDS: LISINOPRIL 5 MG TABLET PO SCH (08:43)
[2016-11-12] MEDS: PREGABALIN 25 MG CAPSULE (LYRICA) PO SCH ×2 (08:44→22:45)
[2016-11-12] MEDS: PREGABALIN 75 MG CAPSULE (LYRICA) PO SCH ×2 (08:45→22:46)
[2016-11-12] MEDS: MARAVIROC 150 MG NG SCH ×2 (08:46→22:00)
[2016-11-12] MEDS: PREZCOBIX NG SCH (08:46)
[2016-11-12] MEDS: BALSAM PERU/CASTOR OIL 60 GM OINT...G. TP SCH (08:48)
[2016-11-12] MEDS: ANTIFUNGAL CLEAR OINTMENT TP SCH ×2 (09:00→22:00)
[2016-11-12 18:38] LABS: HIV-1 RNA BY PCR <20 copies/mL (.)
[2016-11-12] MEDS: SIMVASTATIN 40 MG TABLET PO SCH (22:45)
[2016-11-12] MEDS: LEVOFLOXACIN 250 MG/D5W 50 ML IV SCH (22:52)
[2016-11-13] VITALS (15 sets, daily range): BP systolic 126–156
[2016-11-13] MEDS: IPRATROPIUM BROM 0.5 MG/2.5 ML VIAL.NEB (ATROVENT) INH SCH ×4 (00:47→19:34)
[2016-11-13] MEDS: ALBUTEROL SULFATE 0.083% 2.5 MG/3 ML VIAL.NEB INH SCH ×4 (00:48→19:33)
[2016-11-13] MEDS: PIPERACILLIN/TAZO 2.25G/DEX-IS 50 ML IV SCH ×3 (04:18→16:18)
[2016-11-13] MEDS: MORPHINE 2 MG/ML INJ. SYRINGE IVP PRN (04:37)
[2016-11-13 06:29] LABS: BASOPHILS % (AUTO) 0.1 % (0.0-2.0); MONOCYTES # (AUTO) 0.1 K/uL (0.0-1.0)
[2016-11-13 06:32] LABS: ALBUMIN 2.7 g/dL (3.4-4.8); CALCIUM 8.1 mg/dL (8.4-11.0); CREATININE 2.64 mg/dL (0.55-1.30); POTASSIUM 4.3 mmol/L (3.5-5.1); TOTAL BILIRUBIN 0.4 mg/dL (0.0-1.0); TOTAL PROTEIN, SERUM 6.9 g/dL (6.4-8.3)
[2016-11-13] MEDS: INSULIN ASPART 100 UNITS/ML, 10 ML VIAL (NovoLOG) SUBCUT PRN ×4 (06:43→21:41)
[2016-11-13 06:59] LABS: EOSINOPHILS % (AUTO) 0.3 % (0.0-4.0); HEMATOCRIT 25.8 % (36-54); HEMOGLOBIN 7.9 g/dL (14.0-18.0); LYMPHOCYTES # (AUTO) 0.5 K/uL (1.0-5.5); LYMPHOCYTES % (AUTO) 20.8 % (20.5-51.5); MEAN CORPUSCULAR HEMOGLOBIN 25 pg (27-31); MEAN CORPUSCULAR HGB CONC 31 % (32-36); MEAN CORPUSCULAR VOLUME 83 fL (79.0-98.0); NEUTROPHILS % (AUTO) 74.8 % (40.0-70.0); PLATELET COUNT (AUTO) 201 K/uL (130-430); RED BLOOD CELL COUNT(AUTO) 3.12 MIL/uL (4.2-6.2); RED CELL DISTRIBUTION WIDTH 17.9 % (9.0-15.0); WHITE BLOOD COUNT (AUTO) 2.6 K/uL (4.8-10.8)
[2016-11-13] MEDS: HEPARIN SODIUM,PORCINE 5000 UNITS/ML VIAL SUBCUT SCH ×3 (07:32→21:27)
[2016-11-13] MEDS: PANTOPRAZOLE SODIUM 40 MG/VIAL (PROTONIX) IVP SCH (09:10)
[2016-11-13] MEDS: PREGABALIN 25 MG CAPSULE (LYRICA) PO SCH ×2 (09:11→21:20)
[2016-11-13] MEDS: methylPREDNISolone SOD SUCC 40 MG/ML VIAL IVP SCH ×2 (09:11→21:00)
[2016-11-13] MEDS: ALLOPURINOL 100 MG TABLET (ZYLOPRIM) PO SCH (09:11)
[2016-11-13] MEDS: FUROSEMIDE 20 MG/2 ML VIAL IVP SCH (09:11)
[2016-11-13] MEDS: ASCORBIC ACID 500 MG TABLET PO SCH (09:11)
[2016-11-13] MEDS: LISINOPRIL 5 MG TABLET PO SCH (09:11)
[2016-11-13] MEDS: PREZCOBIX NG SCH (09:12)
[2016-11-13] MEDS: PREGABALIN 75 MG CAPSULE (LYRICA) PO SCH ×2 (09:12→21:20)
[2016-11-13] MEDS: MARAVIROC 150 MG NG SCH ×2 (09:12→21:30)
[2016-11-13] MEDS: BALSAM PERU/CASTOR OIL 60 GM OINT...G. TP SCH (09:21)
[2016-11-13] MEDS: ANTIFUNGAL CLEAR OINTMENT TP SCH ×2 (09:22→21:23)
[2016-11-13] MEDS: MORPHINE 4 MG/ML INJ. SYRINGE IVP PRN ×2 (12:39→21:28)
[2016-11-13] MEDS: SIMVASTATIN 40 MG TABLET PO SCH (21:22)
[2016-11-13] MEDS: PROCHLORPERAZINE MALEATE 10 MG TABLET PO PRN (21:24)
[2016-11-14] MEDS: ALBUTEROL SULFATE 0.083% 2.5 MG/3 ML VIAL.NEB INH SCH ×5 (00:07→23:55)
[2016-11-14] MEDS: IPRATROPIUM BROM 0.5 MG/2.5 ML VIAL.NEB (ATROVENT) INH SCH ×5 (00:08→23:55)
[2016-11-14] MEDS: LEVOFLOXACIN 250 MG/D5W 50 ML IV SCH ×2 (00:27→22:25)
[2016-11-14] MEDS: PIPERACILLIN/TAZO 2.25G/DEX-IS 50 ML IV SCH ×2 (00:28→04:08)
[2016-11-14 04:30] VITALS: BP_SYST 144
[2016-11-14] MEDS: IPRATROPIUM BROM 0.5 MG/2.5 ML VIAL.NEB (ATROVENT) INH PRN ×2 (05:46→16:41)
[2016-11-14] MEDS: ALBUTEROL SULFATE 0.083% 2.5 MG/3 ML VIAL.NEB INH PRN ×2 (05:46→16:41)
[2016-11-14] MEDS: INSULIN ASPART 100 UNITS/ML, 10 ML VIAL (NovoLOG) SUBCUT PRN ×4 (06:21→22:26)
[2016-11-14] MEDS: HEPARIN SODIUM,PORCINE 5000 UNITS/ML VIAL SUBCUT SCH ×3 (06:22→22:25)
[2016-11-14 06:48] LABS: EOSINOPHILS % (AUTO) 0.1 % (0.0-4.0); HEMATOCRIT 27.1 % (36-54); HEMOGLOBIN 8.3 g/dL (14.0-18.0); LYMPHOCYTES # (AUTO) 0.4 K/uL (1.0-5.5); LYMPHOCYTES % (AUTO) 15.4 % (20.5-51.5); MEAN CORPUSCULAR HEMOGLOBIN 25 pg (27-31); MEAN CORPUSCULAR HGB CONC 31 % (32-36); MEAN CORPUSCULAR VOLUME 83 fL (79.0-98.0); MONOCYTES # (AUTO) 0.1 K/uL (0.0-1.0); MONOCYTES % (AUTO) 3.7 % (1.7-9.3); NEUTROPHILS % (AUTO) 80.8 % (40.0-70.0); PLATELET COUNT (AUTO) 195 K/uL (130-430); RED BLOOD CELL COUNT(AUTO) 3.28 MIL/uL (4.2-6.2); RED CELL DISTRIBUTION WIDTH 17.6 % (9.0-15.0)
[2016-11-14 07:14] LABS: WHITE BLOOD COUNT (AUTO) 2.5 K/uL (4.8-10.8)
[2016-11-14 07:36] LABS: CALCIUM 7.8 mg/dL (8.4-11.0); POTASSIUM 4.4 mmol/L (3.5-5.1)
[2016-11-14 07:37] LABS: ALBUMIN 2.7 g/dL (3.4-4.8); CREATININE 2.43 mg/dL (0.55-1.30); TOTAL BILIRUBIN 0.4 mg/dL (0.0-1.0); TOTAL PROTEIN, SERUM 6.6 g/dL (6.4-8.3)
[2016-11-14 08:49] VITALS: BP_SYST 135
[2016-11-14] MEDS: ALLOPURINOL 100 MG TABLET (ZYLOPRIM) PO SCH (08:52)
[2016-11-14] MEDS: LISINOPRIL 5 MG TABLET PO SCH (08:52)
[2016-11-14] MEDS: ASCORBIC ACID 500 MG TABLET PO SCH (08:53)
[2016-11-14] MEDS: PREGABALIN 75 MG CAPSULE (LYRICA) PO SCH ×2 (08:53→21:22)
[2016-11-14] MEDS: PREGABALIN 25 MG CAPSULE (LYRICA) PO SCH ×2 (08:53→21:21)
[2016-11-14] MEDS: methylPREDNISolone SOD SUCC 40 MG/ML VIAL IVP SCH ×2 (08:54→22:26)
[2016-11-14] MEDS: FUROSEMIDE 20 MG/2 ML VIAL IVP SCH (08:54)
[2016-11-14] MEDS: PANTOPRAZOLE SODIUM 40 MG/VIAL (PROTONIX) IVP SCH (08:54)
[2016-11-14] MEDS: ANTIFUNGAL CLEAR OINTMENT TP SCH ×2 (09:00→21:00)
[2016-11-14] MEDS: BALSAM PERU/CASTOR OIL 60 GM OINT...G. TP SCH (09:03)
[2016-11-14] MEDS: MARAVIROC 150 MG NG SCH ×2 (09:09→21:19)
[2016-11-14] MEDS: PREZCOBIX NG SCH (09:09)
[2016-11-14 14:32] VITALS: BP_SYST 130
[2016-11-14 17:02] VITALS: BP_SYST 126
[2016-11-14 20:00] VITALS: BP_SYST 140
[2016-11-14] MEDS ORDERED: guaiFENesin 200 MG/CODEINE 20 MG/ 10 ML UDC PO PRN (21:15)
[2016-11-14] MEDS: SIMVASTATIN 40 MG TABLET PO SCH (21:22)
[2016-11-14] MEDS: guaiFENesin 200 MG/CODEINE 20 MG/ 10 ML UDC PO PRN (23:48)
[2016-11-15] VITALS (7 sets, daily range): BP systolic 122–138
[2016-11-15 06:00] LABS: HEMATOCRIT 27.5 % (36-54); HEMOGLOBIN 8.5 g/dL (14.0-18.0); LYMPHOCYTES # (AUTO) 0.4 K/uL (1.0-5.5); LYMPHOCYTES % (AUTO) 9.2 % (20.5-51.5); MEAN CORPUSCULAR HEMOGLOBIN 26 pg (27-31); MEAN CORPUSCULAR HGB CONC 31 % (32-36); MEAN CORPUSCULAR VOLUME 83 fL (79.0-98.0); MONOCYTES # (AUTO) 0.2 K/uL (0.0-1.0); MONOCYTES % (AUTO) 4.8 % (1.7-9.3); NEUTROPHILS # (AUTO) 3.5 K/uL (1.8-7.7); PLATELET COUNT (AUTO) 187 K/uL (130-430); RED BLOOD CELL COUNT(AUTO) 3.31 MIL/uL (4.2-6.2); RED CELL DISTRIBUTION WIDTH 18.1 % (9.0-15.0); WHITE BLOOD COUNT (AUTO) 4.1 K/uL (4.8-10.8)
[2016-11-15 06:16] LABS: CALCIUM 8.3 mg/dL (8.4-11.0); CREATININE 2.16 mg/dL (0.55-1.30); POTASSIUM 4.3 mmol/L (3.5-5.1); TOTAL BILIRUBIN 0.5 mg/dL (0.0-1.0); TOTAL PROTEIN, SERUM 6.7 g/dL (6.4-8.3)
[2016-11-15] MEDS: INSULIN ASPART 100 UNITS/ML, 10 ML VIAL (NovoLOG) SUBCUT PRN ×3 (06:40→17:47)
[2016-11-15] MEDS: HEPARIN SODIUM,PORCINE 5000 UNITS/ML VIAL SUBCUT SCH ×2 (06:47→14:02)
[2016-11-15] MEDS: ALBUTEROL SULFATE 0.083% 2.5 MG/3 ML VIAL.NEB INH SCH ×2 (06:59→13:34)
[2016-11-15] MEDS: IPRATROPIUM BROM 0.5 MG/2.5 ML VIAL.NEB (ATROVENT) INH SCH ×2 (07:00→13:34)
[2016-11-15] MEDS: methylPREDNISolone SOD SUCC 40 MG/ML VIAL IVP SCH (08:29)
[2016-11-15] MEDS: PANTOPRAZOLE SODIUM 40 MG/VIAL (PROTONIX) IVP SCH (08:30)
[2016-11-15] MEDS: PREGABALIN 75 MG CAPSULE (LYRICA) PO SCH (08:31)
[2016-11-15] MEDS: PREGABALIN 25 MG CAPSULE (LYRICA) PO SCH (08:31)
[2016-11-15] MEDS: FUROSEMIDE 20 MG/2 ML VIAL IVP SCH (08:31)
[2016-11-15] MEDS: PREZCOBIX NG SCH (08:32)
[2016-11-15] MEDS: ASCORBIC ACID 500 MG TABLET PO SCH (08:32)
[2016-11-15] MEDS: guaiFENesin 200 MG/CODEINE 20 MG/ 10 ML UDC PO PRN (08:32)
[2016-11-15] MEDS: LISINOPRIL 5 MG TABLET PO SCH (08:32)
[2016-11-15] MEDS: ALLOPURINOL 100 MG TABLET (ZYLOPRIM) PO SCH (08:32)
[2016-11-15] MEDS: MARAVIROC 150 MG NG SCH (08:33)
[2016-11-15] MEDS: ANTIFUNGAL CLEAR OINTMENT TP SCH (08:35)
[2016-11-15] MEDS: BALSAM PERU/CASTOR OIL 60 GM OINT...G. TP SCH (08:35)
[2016-11-15] MEDS ORDERED: FLUCONAZOLE 200 MG TABLET (DIFLUCAN) PO SCH (12:30)
[2016-11-15] MEDS ORDERED: FLUCONAZOLE 200 MG TABLET (DIFLUCAN) PO ONE (14:00)
[2016-11-15] MEDS ORDERED: CEFE1FRO IV (19:03)
== END 2016-11-15 19:30 | disposition home health service (06) | DRG 974 ==
LOC: SED 13:43 → SIC 15:42 → STU 11-13 11:00
PROC: 5A1945Z Respiratory Ventilation, 24-96 Consecutive Hours (ICD-10-PCS; principal; 2016-11-09)
PROC: 0BH17EZ Insertion of Endotracheal Airway into Trachea, Via Natural or Artificial Opening (ICD-10-PCS; 2016-11-09)
PROC: 06HM33Z Insertion of Infusion Device into Right Femoral Vein, Percutaneous Approach (ICD-10-PCS; 2016-11-09)
PROC: B54BZZA Ultrasonography of Right Lower Extremity Veins, Guidance (ICD-10-PCS; 2016-11-09)
DX: B20 Human immunodeficiency virus [HIV] disease (principal); J96.20 Acute and chronic respiratory failure, unspecified whether with hypoxia or hypercapnia; A41.9 Sepsis, unspecified organism; J69.0 Pneumonitis due to inhalation of food and vomit; N17.0 Acute kidney failure with tubular necrosis; N39.0 Urinary tract infection, site not specified; I13.0 Hypertensive heart and chronic kidney disease with heart failure and stage 1 through stage 4 chronic kidney disease, or unspecified chronic kidney disease; E87.2 Acidosis; E87.0 Hyperosmolality and hypernatremia; B96.5 Pseudomonas (aeruginosa) (mallei) (pseudomallei) as the cause of diseases classified elsewhere; I50.9 Heart failure, unspecified; J44.9 Chronic obstructive pulmonary disease, unspecified; E11.22 Type 2 diabetes mellitus with diabetic chronic kidney disease; E66.01 Morbid (severe) obesity due to excess calories; E87.5 Hyperkalemia; G47.33 Obstructive sleep apnea (adult) (pediatric); G89.29 Other chronic pain; I25.10 Atherosclerotic heart disease of native coronary artery without angina pectoris; T36.0X5A Adverse effect of penicillins, initial encounter; Z96.653 Presence of artificial knee joint, bilateral; D64.9 Anemia, unspecified; N18.3 Chronic kidney disease, stage 3 (moderate); I07.1 Rheumatic tricuspid insufficiency; Z66 Do not resuscitate; Z79.01 Long term (current) use of anticoagulants; Z86.718 Personal history of other venous thrombosis and embolism; Z86.73 Personal history of transient ischemic attack (TIA), and cerebral infarction without residual deficits; Z87.891 Personal history of nicotine dependence; Z91.19 Patient's noncompliance with other medical treatment and regimen; Z98.61 Coronary angioplasty status; Z99.81 Dependence on supplemental oxygen; Y92.89 Other specified places as the place of occurrence of the external cause; Z90.49 Acquired absence of other specified parts of digestive tract; Z88.8 Allergy status to other drugs, medicaments and biological substances
CPT/HCPCS: 36415; 36600; 70450-TC; 71010; 80053; 80307; 81000-TC; 82140-TC; 82550-TC; 82803-TC; 82962; 83605; 83880; 84302-TC; 84484; 84550-TC; 85025; 85610-TC; 85730-TC; 86704; 86706; 86803; 87040-TC; 87070-TC; 87081; 87086; 87186-TC; 87205-TC; 87340; 87536; 93005; 93970; 94002; 94003; 94640; 94760; 96374; 96375; 97116-GP; 97530-GP; 99291; C1751; C9113; G0480; G0481; G0482; J1030; J1644; J1815; J1940; J1956; J2060; J2270; J2543; J3370; J3490; J7030; J7042; J7050; Q0164

== ENCOUNTER 2016-11-28 10:36 | Inpatient (IN) | payer OTHER, MEDICAID ==
[2016-11-28] VITALS (10 sets, daily range): BP systolic 72–134
[~2016-11-28] VITALS: Ht 172.7 cm; Wt 127.0 kg
[~2016-11-28 10:36] MED LIST changes: -ANT30 PO; -ASPI-1063 PO; +CEFE1FRO IV; -CLOP75TA2 PO; -DULR10 RC; -ETOMIDATE 20 MG/ 10 ML VIAL (AMIDATE) IVP ONE; -MAGN400O4 PO; +METH500T PO; -METH750T3 PO; -MORP30TA PO; -NA P118E RC; -TYLL650 PO
[2016-11-28] MEDS ORDERED: NALOXONE HCL 2 MG/2 ML SYR IVP ONE (10:45)
[2016-11-28] MEDS ORDERED: IPRATROPIUM/ALBUTEROL SULFATE 3 ML AMPUL.NEB INH ONE (10:45)
[2016-11-28] MEDS ORDERED: IPRATROPIUM/ALBUTEROL SULFATE 3 ML AMPUL.NEB ONE (10:53)
[2016-11-28 10:59] LABS: BASOPHILS # (AUTO) 0.2 K/uL (0.0-0.2); BASOPHILS % (AUTO) 1.6 % (0.0-2.0); EOSINOPHILS # (AUTO) 0.1 K/uL (0.0-0.4); EOSINOPHILS % (AUTO) 0.4 % (0.0-4.0); HEMOGLOBIN 8.8 g/dL (14.0-18.0); LYMPHOCYTES # (AUTO) 4.4 K/uL (1.0-5.5); LYMPHOCYTES % (AUTO) 29.8 % (20.5-51.5); MEAN CORPUSCULAR HEMOGLOBIN 25 pg (27-31); MEAN CORPUSCULAR HGB CONC 32 % (32-36); MEAN CORPUSCULAR VOLUME 81 fL (79.0-98.0); MONOCYTES # (AUTO) 0.7 K/uL (0.0-1.0); MONOCYTES % (AUTO) 4.7 % (1.7-9.3); NEUTROPHILS # (AUTO) 9.3 K/uL (1.8-7.7); NEUTROPHILS % (AUTO) 63.5 % (40.0-70.0); PLATELET COUNT (AUTO) 187 K/uL (130-430); RED BLOOD CELL COUNT(AUTO) 3.48 MIL/uL (4.2-6.2); RED CELL DISTRIBUTION WIDTH 17.5 % (9.0-15.0); WHITE BLOOD COUNT (AUTO) 14.7 K/uL (4.8-10.8)
[2016-11-28 11:10] LABS: ANION GAP 5 (5-15); CALCIUM 7.9 mg/dL (8.4-11.0); CHLORIDE 95 mmol/L (98-107); CREATININE 7.25 mg/dL (0.55-1.30); GLUCOSE 85 mg/dL (70-99); SODIUM SERUM 133 mmol/L (136-145); UREA NITROGEN, BLOOD 63 mg/dL (8-21)
[2016-11-28 11:11] LABS: INR 1.1 (0.80-1.20); PROTHROMBIN TIME 11.9 SECS (9.5-12.5)
[2016-11-28 11:17] LABS: POTASSIUM 6.4 mmol/L (3.5-5.1)
[2016-11-28 11:18] LABS: ALANINE AMINOTRANSFERASE 22 U/L (12-78); ASPARTATE AMINOTRANSFERASE 45 U/L (10-37); GFR AFRICAN AMERICAN 10 mL/min (>90); TOTAL BILIRUBIN 0.7 mg/dL (0.0-1.0)
[2016-11-28 11:19] LABS: ALBUMIN 2.2 g/dL (3.4-4.8); ALCOHOL, BLOOD < 3 mg/dL (<10)
[2016-11-28] MEDS ORDERED: DEXTROSE 50% JECT 50 ML DISP.SYRIN IVP ONE (11:30)
[2016-11-28] MEDS ORDERED: INSULIN REGULAR, HUMAN 10 UNITS/0.1 ML INJ IVP ONE (11:30)
[2016-11-28] MEDS ORDERED: NACL 0.9% 1,000 ML IV ONE ×3 (11:30→12:45)
[2016-11-28] MEDS ORDERED: FUROSEMIDE 100 MG/10 ML VIAL IVP ONE (11:30)
[2016-11-28] MEDS ORDERED: CALCIUM GLUCONATE 2 GM in NS 100 ML IV ONE (11:30)
[2016-11-28 11:44] LABS: BILIRUBIN,URINE NEGATIVE (NEGATIVE); BLOOD, URINE 3+ (NEGATIVE); CLARITY/URINE HAZY (CLEAR); COLOR,URINE BROWN (YELLOW); GLUCOSE,URINE NEGATIVE (NEGATIVE); KETONES,URINE NEGATIVE (NEGATIVE); LEUKOCYTE ESTERASE ,URINE 1+ (NEGATIVE); NITRITE, URINE NEGATIVE (NEGATIVE); PROTEIN URINE 2+ (NEGATIVE); UROBILINOGEN,URINE 0.2 (0.2-1.0)
[2016-11-28] MEDS ORDERED: CALCIUM GLUCONATE 1 GM/10 ML VIAL ONE (11:44)
[2016-11-28 11:50] LABS: ACETAMINOPHEN < 1 ug/mL (1-30)
[2016-11-28] MEDS ORDERED: PIPERACILLIN/TAZO 4.5 GM in NS 100 ML IV ONE (12:00)
[2016-11-28] MEDS ORDERED: VANCOMYCIN HCL 1,000 MG in NS 250 ML IV ONE (12:00)
[2016-11-28 12:11] LABS: BARBITURATE, URINE NEGATIVE (NEG <=200); BENZODIAZEPINE, URINE NEGATIVE (NEG <=150); CANNABINOID, URINE NEGATIVE (NEG <=50); COCAINE, URINE NEGATIVE (NEG <=150); METHAMPHETAMINES SCREEN,URINE NEGATIVE (NEG <=500); PHENCYCLIDINE SCREEN,URINE NEGATIVE (NEG <=25); UR TRICYCLIC ANTIDEPRESSANTS NEGATIVE (NEG <=300); URINE AMPHETAMINE NEGATIVE (NEG <=500); URINE METHADONE NEGATIVE (NEG <=200); URINE OXYCODONE SCREEN NEGATIVE (NEG <=100); URINE PROPOXYPHENE SCREEN NEGATIVE (NEG <=300)
[2016-11-28 12:12] LABS: OPIATE, URINE POSITIVE (NEG <=100)
[2016-11-28] MEDS ORDERED: VANCOMYCIN HCL 1000 MG/VIAL IV ONE (12:31)
[2016-11-28] MEDS ORDERED: PIPERACILLIN/TAZOBACTAM 4.5 GM/VIAL (ZOSYN) IV ONE (12:32)
[2016-11-28 12:39] LABS: BACTERIA,URINE RARE /HPF (None Seen); RBC,URINE 20-50 /HPF (0-3)
[2016-11-28 12:40] LABS: MUCUS,URINE 1+ /LPF (None Seen); YEAST,URINE Moderate /HPF (None Seen)
[2016-11-28] MEDS ORDERED: LIDOCAINE/EPI 2% 1:100000 20 ML VIAL INJ ONE (13:31)
[2016-11-28] MEDS ORDERED: NOREPINEPHRINE BITARTRATE 4 MG in D5W 246 ML IV PRN (14:00)
[2016-11-28] MEDS ORDERED: NOREPINEPHRINE 4 MG/4 ML VIAL IV ONE (14:18)
[2016-11-28] MEDS: D5NS 1,000 ML IV SCH (15:03)
[2016-11-28 16:35] LABS: CALCIUM 7.8 mg/dL (8.4-11.0); CREATININE 6.9 mg/dL (0.55-1.30)
[2016-11-28 16:44] LABS: POTASSIUM 6.1 mmol/L (3.5-5.1)
[2016-11-28] MEDS ORDERED: ALBUTEROL SULFATE 0.083% 2.5 MG/3 ML VIAL.NEB INH PRN (17:30)
[2016-11-28] MEDS ORDERED: IPRATROPIUM BROM 0.5 MG/2.5 ML VIAL.NEB (ATROVENT) INH PRN (17:30)
[2016-11-28] MEDS ORDERED: PIPERACILLIN/TAZO 2.25G/DEX-IS 50 ML IV SCH (18:00)
[2016-11-28] MEDS ORDERED: FUROSEMIDE 20 MG/2 ML VIAL IVP ONE (18:00)
[2016-11-28] MEDS: IPRATROPIUM BROM 0.5 MG/2.5 ML VIAL.NEB (ATROVENT) INH SCH (19:42)
[2016-11-28] MEDS: ALBUTEROL SULFATE 0.083% 2.5 MG/3 ML VIAL.NEB INH SCH (19:42)
[2016-11-28] MEDS: PIPERACILLIN/TAZOBACTAM 2.25 GM/ DEX-IS 50 ML PREMIX IV SCH (21:16)
[2016-11-28] MEDS: HYDROCORTISONE SOD SUCC 100 MG/2 ML VIAL IVP SCH (21:16)
[2016-11-28] MEDS: NOREPINEPHRINE BITARTRATE 8 MG in D5W 242 ML IV PRN (21:18)
[2016-11-29] VITALS (24 sets, daily range): BP systolic 63–153
[2016-11-29] MEDS: IPRATROPIUM BROM 0.5 MG/2.5 ML VIAL.NEB (ATROVENT) INH SCH ×4 (00:04→19:54)
[2016-11-29] MEDS: ALBUTEROL SULFATE 0.083% 2.5 MG/3 ML VIAL.NEB INH SCH ×4 (00:04→19:54)
[2016-11-29] MEDS: D5NS 1,000 ML IV SCH (02:34)
[2016-11-29] MEDS: PIPERACILLIN/TAZOBACTAM 2.25 GM/ DEX-IS 50 ML PREMIX IV SCH ×3 (05:29→21:12)
[2016-11-29] MEDS: HYDROCORTISONE SOD SUCC 100 MG/2 ML VIAL IVP SCH ×3 (05:34→21:21)
[2016-11-29 06:52] LABS: BASOPHILS # (AUTO) 0.1 K/uL (0.0-0.2); BASOPHILS % (AUTO) 0.4 % (0.0-2.0); HEMATOCRIT 29.5 % (36-54); HEMOGLOBIN 9.5 g/dL (14.0-18.0); LYMPHOCYTES # (AUTO) 1.8 K/uL (1.0-5.5); LYMPHOCYTES % (AUTO) 9.7 % (20.5-51.5); MEAN CORPUSCULAR HEMOGLOBIN 26 pg (27-31); MEAN CORPUSCULAR HGB CONC 32 % (32-36); MEAN CORPUSCULAR VOLUME 81 fL (79.0-98.0); MONOCYTES # (AUTO) 0.3 K/uL (0.0-1.0); MONOCYTES % (AUTO) 1.6 % (1.7-9.3); NEUTROPHILS # (AUTO) 16.8 K/uL (1.8-7.7); NEUTROPHILS % (AUTO) 88.3 % (40.0-70.0); PLATELET COUNT (AUTO) 310 K/uL (130-430); RED BLOOD CELL COUNT(AUTO) 3.62 MIL/uL (4.2-6.2); RED CELL DISTRIBUTION WIDTH 17.9 % (9.0-15.0)
[2016-11-29 06:53] LABS: ALBUMIN 2.2 g/dL (3.4-4.8); CALCIUM 7.7 mg/dL (8.4-11.0); TOTAL BILIRUBIN 0.7 mg/dL (0.0-1.0)
[2016-11-29 06:57] LABS: POTASSIUM 6.6 mmol/L (3.5-5.1)
[2016-11-29 06:58] LABS: CREATININE 7.77 mg/dL (0.55-1.30)
[2016-11-29] MEDS ORDERED: LIDOCAINE 2%, 20 ML MDV INJ ONE (08:15)
[2016-11-29] MEDS ORDERED: LIDOCAINE 2%, 20 ML MDV ONE (08:19)
[2016-11-29] MEDS: NOREPINEPHRINE BITARTRATE 8 MG in D5W 242 ML IV PRN ×3 (08:20→21:15)
[2016-11-29] MEDS ORDERED: HEPARIN SODIUM,PORCINE 5000 UNITS/ML VIAL ONE ×2 (08:43→16:36)
[2016-11-29] MEDS ORDERED: HEPARIN SODIUM,PORCINE 5000 UNITS/ML VIAL IVP ONE ×2 (08:45→16:30)
[2016-11-29] MEDS: 0.45% NACL 1,000 ML IV SCH (11:24)
[2016-11-29] MEDS ORDERED: FLUCONAZOLE 200 mg/ NS 100 ML IV SCH (17:00)
[2016-11-29] MEDS ORDERED: COMMUNICATION ORDER XX SCH ×2 (21:00)
[2016-11-29] MEDS: FLUCONAZOLE 200 mg/ NS 100 ML IV SCH (21:13)
[2016-11-29] MEDS: HEPARIN SODIUM,PORCINE 5000 UNITS/ML VIAL SUBCUT SCH (21:20)
[2016-11-30] VITALS (24 sets, daily range): BP systolic 96–150
[2016-11-30] MEDS: ALBUTEROL SULFATE 0.083% 2.5 MG/3 ML VIAL.NEB INH SCH ×4 (00:12→19:37)
[2016-11-30] MEDS: IPRATROPIUM BROM 0.5 MG/2.5 ML VIAL.NEB (ATROVENT) INH SCH ×4 (00:13→19:38)
[2016-11-30] MEDS: PIPERACILLIN/TAZOBACTAM 2.25 GM/ DEX-IS 50 ML PREMIX IV SCH ×3 (05:56→22:14)
[2016-11-30] MEDS: HYDROCORTISONE SOD SUCC 100 MG/2 ML VIAL IVP SCH ×2 (05:57→21:23)
[2016-11-30] MEDS: NOREPINEPHRINE BITARTRATE 8 MG in D5W 242 ML IV PRN ×2 (06:33→10:26)
[2016-11-30] MEDS: 0.45% NACL 1,000 ML IV SCH (06:35)
[2016-11-30 07:12] LABS: BASOPHILS % (AUTO) 0.3 % (0.0-2.0); EOSINOPHILS % (AUTO) 0.1 % (0.0-4.0); HEMATOCRIT 29.6 % (36-54); HEMOGLOBIN 9.5 g/dL (14.0-18.0); LYMPHOCYTES # (AUTO) 1.7 K/uL (1.0-5.5); LYMPHOCYTES % (AUTO) 11.9 % (20.5-51.5); MEAN CORPUSCULAR HEMOGLOBIN 26 pg (27-31); MEAN CORPUSCULAR HGB CONC 32 % (32-36); MEAN CORPUSCULAR VOLUME 81 fL (79.0-98.0); MONOCYTES # (AUTO) 0.8 K/uL (0.0-1.0); MONOCYTES % (AUTO) 5.8 % (1.7-9.3); NEUTROPHILS % (AUTO) 81.9 % (40.0-70.0); PLATELET COUNT (AUTO) 297 K/uL (130-430); RED BLOOD CELL COUNT(AUTO) 3.68 MIL/uL (4.2-6.2); RED CELL DISTRIBUTION WIDTH 17.2 % (9.0-15.0)
[2016-11-30 07:13] LABS: ALBUMIN 2.3 g/dL (3.4-4.8); CALCIUM 7.8 mg/dL (8.4-11.0); CREATININE 6.57 mg/dL (0.55-1.30); POTASSIUM 5.2 mmol/L (3.5-5.1); TOTAL BILIRUBIN 0.6 mg/dL (0.0-1.0)
[2016-11-30 07:37] LABS: WHITE BLOOD COUNT (AUTO) 14.5 K/uL (4.8-10.8)
[2016-11-30] MEDS ORDERED: COMMUNICATION ORDER XX SCH (09:00)
[2016-11-30] MEDS: HEPARIN SODIUM,PORCINE 5000 UNITS/ML VIAL SUBCUT SCH ×2 (09:00→21:26)
[2016-11-30] MEDS: PREZCOBIX 800 MG PO SCH (10:28)
[2016-11-30] MEDS: SELZENTRY PO SCH ×2 (10:28→21:21)
[2016-11-30] MEDS: ISENTRESS 400 MG PO SCH ×2 (10:29→21:21)
[2016-11-30] MEDS: FLUCONAZOLE 200 mg/ NS 100 ML IV SCH (21:26)
[2016-12-01] VITALS (23 sets, daily range): BP systolic 97–126
[2016-12-01] MEDS: IPRATROPIUM BROM 0.5 MG/2.5 ML VIAL.NEB (ATROVENT) INH SCH ×4 (00:45→19:36)
[2016-12-01] MEDS: ALBUTEROL SULFATE 0.083% 2.5 MG/3 ML VIAL.NEB INH SCH ×4 (00:45→19:36)
[2016-12-01] MEDS: 0.45% NACL 1,000 ML IV SCH ×2 (02:15→14:03)
[2016-12-01] MEDS: PIPERACILLIN/TAZOBACTAM 2.25 GM/ DEX-IS 50 ML PREMIX IV SCH ×3 (06:00→22:04)
[2016-12-01 07:16] LABS: BASOPHILS % (AUTO) 0.3 % (0.0-2.0); EOSINOPHILS % (AUTO) 0.4 % (0.0-4.0); HEMATOCRIT 26.3 % (36-54); HEMOGLOBIN 8.4 g/dL (14.0-18.0); LYMPHOCYTES # (AUTO) 1.5 K/uL (1.0-5.5); LYMPHOCYTES % (AUTO) 16.6 % (20.5-51.5); MEAN CORPUSCULAR HEMOGLOBIN 26 pg (27-31); MEAN CORPUSCULAR HGB CONC 32 % (32-36); MEAN CORPUSCULAR VOLUME 81 fL (79.0-98.0); MONOCYTES # (AUTO) 0.6 K/uL (0.0-1.0); MONOCYTES % (AUTO) 6.5 % (1.7-9.3); NEUTROPHILS # (AUTO) 6.7 K/uL (1.8-7.7); NEUTROPHILS % (AUTO) 76.2 % (40.0-70.0); PLATELET COUNT (AUTO) 220 K/uL (130-430); RED BLOOD CELL COUNT(AUTO) 3.25 MIL/uL (4.2-6.2); RED CELL DISTRIBUTION WIDTH 17.6 % (9.0-15.0); WHITE BLOOD COUNT (AUTO) 8.8 K/uL (4.8-10.8)
[2016-12-01 07:53] LABS: ALBUMIN 2.3 g/dL (3.4-4.8); CALCIUM 7.6 mg/dL (8.4-11.0); CREATININE 7.16 mg/dL (0.55-1.30); TOTAL BILIRUBIN 0.6 mg/dL (0.0-1.0)
[2016-12-01] MEDS: HYDROCORTISONE SOD SUCC 100 MG/2 ML VIAL IVP SCH ×2 (09:05→21:16)
[2016-12-01] MEDS: PREZCOBIX 800 MG PO SCH (09:06)
[2016-12-01] MEDS: SELZENTRY PO SCH ×2 (09:06→21:16)
[2016-12-01] MEDS: ISENTRESS 400 MG PO SCH ×2 (09:06→21:16)
[2016-12-01] MEDS: HEPARIN SODIUM,PORCINE 5000 UNITS/ML VIAL SUBCUT SCH ×2 (09:08→21:58)
[2016-12-01] MEDS: FLUCONAZOLE 200 mg/ NS 100 ML IV SCH (21:15)
[2016-12-02] VITALS (13 sets, daily range): BP systolic 87–127
[2016-12-02] MEDS: ALBUTEROL SULFATE 0.083% 2.5 MG/3 ML VIAL.NEB INH SCH ×4 (01:28→19:58)
[2016-12-02] MEDS: IPRATROPIUM BROM 0.5 MG/2.5 ML VIAL.NEB (ATROVENT) INH SCH ×4 (01:28→19:58)
[2016-12-02] MEDS: PIPERACILLIN/TAZOBACTAM 2.25 GM/ DEX-IS 50 ML PREMIX IV SCH ×3 (06:02→23:05)
[2016-12-02 06:43] LABS: BASOPHILS % (AUTO) 0.2 % (0.0-2.0); EOSINOPHILS # (AUTO) 0.1 K/uL (0.0-0.4); HEMATOCRIT 24.2 % (36-54); HEMOGLOBIN 7.7 g/dL (14.0-18.0); LYMPHOCYTES # (AUTO) 1.3 K/uL (1.0-5.5); LYMPHOCYTES % (AUTO) 22.3 % (20.5-51.5); MEAN CORPUSCULAR HEMOGLOBIN 26 pg (27-31); MEAN CORPUSCULAR HGB CONC 32 % (32-36); MEAN CORPUSCULAR VOLUME 80 fL (79.0-98.0); MONOCYTES # (AUTO) 0.5 K/uL (0.0-1.0); MONOCYTES % (AUTO) 7.6 % (1.7-9.3); NEUTROPHILS # (AUTO) 4.1 K/uL (1.8-7.7); NEUTROPHILS % (AUTO) 68.9 % (40.0-70.0); PLATELET COUNT (AUTO) 187 K/uL (130-430); RED BLOOD CELL COUNT(AUTO) 3.02 MIL/uL (4.2-6.2); RED CELL DISTRIBUTION WIDTH 17.7 % (9.0-15.0)
[2016-12-02] MEDS: PREZCOBIX 800 MG PO SCH (09:59)
[2016-12-02] MEDS: HYDROCORTISONE SOD SUCC 100 MG/2 ML VIAL IVP SCH ×2 (10:00→20:38)
[2016-12-02] MEDS: ISENTRESS 400 MG PO SCH ×2 (10:00→20:57)
[2016-12-02] MEDS: SELZENTRY PO SCH ×2 (10:00→20:57)
[2016-12-02] MEDS: HEPARIN SODIUM,PORCINE 5000 UNITS/ML VIAL SUBCUT SCH ×2 (10:01→21:00)
[2016-12-02] MEDS: FLUTICASONE PROPIONATE 50 mCg/SPRAY 16 GM NS SCH (17:43)
[2016-12-02] MEDS: 0.45% NACL 1,000 ML IV SCH (17:50)
[2016-12-02] MEDS: FLUCONAZOLE 200 mg/ NS 100 ML IV SCH (20:38)
[2016-12-03 00:12] VITALS: BP_SYST 93
[2016-12-03] MEDS: ALBUTEROL SULFATE 0.083% 2.5 MG/3 ML VIAL.NEB INH SCH ×3 (00:59→15:46)
[2016-12-03] MEDS: IPRATROPIUM BROM 0.5 MG/2.5 ML VIAL.NEB (ATROVENT) INH SCH ×3 (00:59→15:46)
[2016-12-03 04:38] VITALS: BP_SYST 109
[2016-12-03] MEDS: PIPERACILLIN/TAZOBACTAM 2.25 GM/ DEX-IS 50 ML PREMIX IV SCH ×2 (05:38→14:09)
[2016-12-03 07:02] LABS: CREATININE 6.69 mg/dL (0.55-1.30); POTASSIUM 4.4 mmol/L (3.5-5.1)
[2016-12-03 07:33] LABS: BASOPHILS % (AUTO) 0.4 % (0.0-2.0); EOSINOPHILS % (AUTO) 0.4 % (0.0-4.0); HEMATOCRIT 26.5 % (36-54); HEMOGLOBIN 8.3 g/dL (14.0-18.0); LYMPHOCYTES # (AUTO) 1.3 K/uL (1.0-5.5); LYMPHOCYTES % (AUTO) 21.5 % (20.5-51.5); MEAN CORPUSCULAR HEMOGLOBIN 25 pg (27-31); MEAN CORPUSCULAR HGB CONC 32 % (32-36); MEAN CORPUSCULAR VOLUME 80 fL (79.0-98.0); MONOCYTES # (AUTO) 0.5 K/uL (0.0-1.0); MONOCYTES % (AUTO) 7.9 % (1.7-9.3); NEUTROPHILS # (AUTO) 4.4 K/uL (1.8-7.7); PLATELET COUNT (AUTO) 217 K/uL (130-430); RED CELL DISTRIBUTION WIDTH 18.4 % (9.0-15.0); WHITE BLOOD COUNT (AUTO) 6.2 K/uL (4.8-10.8)
[2016-12-03 07:57] VITALS: BP_SYST 123
[2016-12-03] MEDS: FLUTICASONE PROPIONATE 50 mCg/SPRAY 16 GM NS SCH (09:00)
[2016-12-03 09:04] LABS: NEUTROPHILS % (AUTO) 69.8 % (40.0-70.0)
[2016-12-03] MEDS: PREZCOBIX 800 MG PO SCH (09:21)
[2016-12-03] MEDS: SELZENTRY PO SCH (09:22)
[2016-12-03] MEDS: ISENTRESS 400 MG PO SCH (09:22)
[2016-12-03] MEDS: HEPARIN SODIUM,PORCINE 5000 UNITS/ML VIAL SUBCUT SCH (09:23)
[2016-12-03] MEDS: HYDROCORTISONE SOD SUCC 100 MG/2 ML VIAL IVP SCH (09:24)
[2016-12-03] MEDS ORDERED: HEPARIN SODIUM,PORCINE 5000 UNITS/ML VIAL IV ONE (11:00)
[2016-12-03] MEDS ORDERED: HEPARIN SODIUM,PORCINE 5000 UNITS/ML VIAL ONE (11:47)
[2016-12-03 11:51] VITALS: BP_SYST 119
[2016-12-03] MEDS ORDERED: EPOETIN ALFA 10,000 UNITS/ML VIAL SUBCUT ONE (12:00)
[2016-12-03] MEDS ORDERED: PREGABALIN 25 MG CAPSULE (LYRICA) PO SCH (13:15)
[2016-12-03] MEDS: 0.45% NACL 1,000 ML IV SCH (14:09)
[2016-12-03] MEDS ORDERED: PREGABALIN 25 MG CAPSULE (LYRICA) PO ONE (14:30)
[2016-12-03 16:12] VITALS: BP_SYST 109
[2016-12-03 17:59] VITALS: BP_SYST 119
[2016-12-05 14:00] LABS: HEPATITIS A AB, IgM Negative (Negative); HEPATITIS B CORE AB, IgM Negative (Negative); HEPATITIS B SURFACE AG Negative (Negative)
== END 2016-12-03 19:00 | DRG 871 ==
LOC: SED 10:36 → SIC 12:38 → STU 12-02 11:59
PROVIDERS: ADMIT Internal Medicine Hospice and Palliative Medicine; ATTEND Internal Medicine Hospice and Palliative Medicine
PROC: 02HV33Z Insertion of Infusion Device into Superior Vena Cava, Percutaneous Approach (ICD-10-PCS; 2016-11-28)
PROC: B548ZZA Ultrasonography of Superior Vena Cava, Guidance (ICD-10-PCS; 2016-11-28)
PROC: 02HV33Z Insertion of Infusion Device into Superior Vena Cava, Percutaneous Approach (ICD-10-PCS; principal; 2016-11-29)
PROC: B548ZZA Ultrasonography of Superior Vena Cava, Guidance (ICD-10-PCS; 2016-11-29)
PROC: 5A1D60Z (ICD-10-PCS; 2016-11-29)
PROC: 5A09357 Assistance with Respiratory Ventilation, Less than 24 Consecutive Hours, Continuous Positive Airway Pressure (ICD-10-PCS; 2016-11-29)
PROC: 0J2TXYZ Change Other Device in Trunk Subcutaneous Tissue and Fascia, External Approach (ICD-10-PCS; 2016-11-30)
DX: A41.9 Sepsis, unspecified organism (principal); J69.0 Pneumonitis due to inhalation of food and vomit; J96.22 Acute and chronic respiratory failure with hypercapnia; R65.21 Severe sepsis with septic shock; E43 Unspecified severe protein-calorie malnutrition; G93.41 Metabolic encephalopathy; N17.9 Acute kidney failure, unspecified; E87.5 Hyperkalemia; B37.49 Other urogenital candidiasis; I13.0 Hypertensive heart and chronic kidney disease with heart failure and stage 1 through stage 4 chronic kidney disease, or unspecified chronic kidney disease; Z68.41 Body mass index [BMI] 40.0-44.9, adult; T82.514A Breakdown (mechanical) of infusion catheter, initial encounter; D63.8 Anemia in other chronic diseases classified elsewhere; E11.40 Type 2 diabetes mellitus with diabetic neuropathy, unspecified; I50.9 Heart failure, unspecified; I25.10 Atherosclerotic heart disease of native coronary artery without angina pectoris; M54.9 Dorsalgia, unspecified; G89.29 Other chronic pain; J44.9 Chronic obstructive pulmonary disease, unspecified; G47.33 Obstructive sleep apnea (adult) (pediatric); E11.22 Type 2 diabetes mellitus with diabetic chronic kidney disease; N18.9 Chronic kidney disease, unspecified; E66.01 Morbid (severe) obesity due to excess calories; Z96.652 Presence of left artificial knee joint; Z90.49 Acquired absence of other specified parts of digestive tract; Z86.718 Personal history of other venous thrombosis and embolism; Z87.891 Personal history of nicotine dependence; Z88.8 Allergy status to other drugs, medicaments and biological substances; Z99.81 Dependence on supplemental oxygen; Z98.61 Coronary angioplasty status; Y92.239 Unspecified place in hospital as the place of occurrence of the external cause; Y93.89 Activity, other specified; Y99.8 Other external cause status; Z79.899 Other long term (current) drug therapy
CPT/HCPCS: 36415; 36600; 71010; 80048; 80053; 80307; 81000-TC; 82803-TC; 82962; 83605; 83880; 84484; 85025; 85610-TC; 85730-TC; 86705; 86709; 87040-TC; 87081; 87086; 87340; 90935; 90937; 92610-GN; 93005; 94640; 94660; 94760; 96365; 96375; 97110-GP; 99291; C1751; G0480; G0481; G0482; J0610; J0885; J1450; J1644; J1720; J1815; J1940; J2001; J2310; J2543; J3370; J7030; J7042; J7050; J7060; NO CODE

== ENCOUNTER 2016-12-11 13:39 | Inpatient (IN) | payer OTHER, MEDICAID ==
[~2016-12-11] VITALS: Ht 172.7 cm; Wt 129.7 kg
[2016-12-11 14:27] VITALS: BP_SYST 165
[2016-12-11 15:52] LABS: BILIRUBIN,URINE NEGATIVE (NEGATIVE); BLOOD, URINE 3+ (NEGATIVE); CLARITY/URINE SL HAZY (CLEAR); COLOR,URINE YELLOW (YELLOW); GLUCOSE,URINE NEGATIVE (NEGATIVE); KETONES,URINE NEGATIVE (NEGATIVE); LEUKOCYTE ESTERASE ,URINE 2+ (NEGATIVE); NITRITE, URINE NEGATIVE (NEGATIVE); PH,URINE 6.5 (5.0-8.0); PROTEIN URINE 2+ (NEGATIVE); UROBILINOGEN,URINE 0.2 (0.2-1.0)
[2016-12-11 15:52] LABS: BASOPHILS # (AUTO) 0.1 K/uL (0.0-0.2); BASOPHILS % (AUTO) 0.7 % (0.0-2.0); EOSINOPHILS # (AUTO) 0.2 K/uL (0.0-0.4); EOSINOPHILS % (AUTO) 1.7 % (0.0-4.0); HEMATOCRIT 29.4 % (36-54); LYMPHOCYTES # (AUTO) 2.3 K/uL (1.0-5.5); LYMPHOCYTES % (AUTO) 24.8 % (20.5-51.5); MEAN CORPUSCULAR HEMOGLOBIN 25 pg (27-31); MEAN CORPUSCULAR HGB CONC 31 % (32-36); MEAN CORPUSCULAR VOLUME 80 fL (79.0-98.0); MONOCYTES # (AUTO) 0.8 K/uL (0.0-1.0); NEUTROPHILS # (AUTO) 5.8 K/uL (1.8-7.7); NEUTROPHILS % (AUTO) 63.8 % (40.0-70.0); PLATELET COUNT (AUTO) 233 K/uL (130-430); RED BLOOD CELL COUNT(AUTO) 3.66 MIL/uL (4.2-6.2); RED CELL DISTRIBUTION WIDTH 17.8 % (9.0-15.0); WHITE BLOOD COUNT (AUTO) 9.2 K/uL (4.8-10.8)
[2016-12-11 16:15] LABS: BACTERIA,URINE MODERATE /HPF (None Seen); YEAST,URINE Many /HPF (None Seen)
[2016-12-11 16:27] LABS: CALCIUM 8.8 mg/dL (8.4-11.0); CREATININE 2.46 mg/dL (0.55-1.30); POTASSIUM 3.3 mmol/L (3.5-5.1)
[2016-12-11 16:30] LABS: INR 1.1 (0.80-1.20); PROTHROMBIN TIME 11.9 SECS (9.5-12.5)
[2016-12-11 16:32] LABS: ALBUMIN 2.4 g/dL (3.4-4.8); TOTAL BILIRUBIN 0.6 mg/dL (0.0-1.0)
[2016-12-11 16:38] LABS: FREE T4 (FREE THYROXINE) 1.2 ng/dl (0.8-1.5)
[2016-12-11] MEDS ORDERED: POTASSIUM CHLORIDE 20 MEQ TAB.PRT.SR PO ONE (17:00)
[2016-12-11] MEDS ORDERED: PIPERACILLIN/TAZO 3.375 GM in NS 50 ML IV ONE (17:00)
[2016-12-11] MEDS ORDERED: PIPERACILLIN/TAZOBACTAM 3.375 GM/VIAL (ZOSYN) IV ONE (18:20)
[2016-12-11 19:22] VITALS: BP_SYST 149
[2016-12-11] MEDS ORDERED: DEXTROSE 50% JECT 50 ML DISP.SYRIN IVP PRN (21:15)
[2016-12-11] MEDS ORDERED: PROCHLORPERAZINE MALEATE 10 MG TABLET PO PRN (21:15)
[2016-12-11] MEDS ORDERED: INSULIN REGULAR, HUMAN 100 UNITS/ML, 10 ML VIAL (novoLIN R) SUBCUT PRN (21:15)
[2016-12-11] MEDS ORDERED: ACETAMINOPHEN 325 MG TABLET PO PRN ×2 (21:15)
[2016-12-11] MEDS ORDERED: IPRATROPIUM/ALBUTEROL SULFATE 3 ML AMPUL.NEB INH PRN (21:15)
[2016-12-11] MEDS ORDERED: oxyCODONE HCL 5 MG TABLET PO PRN (21:15)
[2016-12-11 21:26] VITALS: BP_SYST 149
[2016-12-11] MEDS ORDERED: VANCOMYCIN HCL 1 GM/NS PREMIX 250 ML IV ONE (21:30)
[2016-12-11] MEDS ORDERED: PIPERACILLIN/TAZOBACTAM 2.25 GM VIAL IV ONE (22:54)
[2016-12-11] MEDS ORDERED: VANCOMYCIN HCL 1000 MG/VIAL IV ONE (22:55)
[2016-12-11] MEDS: PIPERACILLIN/TAZO 2.25G/DEX-IS 50 ML IV SCH (23:20)
[2016-12-12 00:10] VITALS: BP_SYST 130
[2016-12-12] MEDS: OXYCODONE/ACETAMINOPHEN 5-325 TABLET PO PRN ×2 (02:37→09:43)
[2016-12-12 03:56] VITALS: BP_SYST 137
[2016-12-12] MEDS: PIPERACILLIN/TAZO 2.25G/DEX-IS 50 ML IV SCH ×3 (05:00→18:26)
[2016-12-12] MEDS ORDERED: INSULIN NPH 100 UNITS/ML 10 ML VIAL SUBCUT SCH (07:00)
[2016-12-12 07:45] LABS: BASOPHILS # (AUTO) 0.1 K/uL (0.0-0.2); EOSINOPHILS # (AUTO) 0.1 K/uL (0.0-0.4); EOSINOPHILS % (AUTO) 1.8 % (0.0-4.0); HEMATOCRIT 28.3 % (36-54); HEMOGLOBIN 8.9 g/dL (14.0-18.0); LYMPHOCYTES # (AUTO) 1.9 K/uL (1.0-5.5); LYMPHOCYTES % (AUTO) 23.9 % (20.5-51.5); MEAN CORPUSCULAR HEMOGLOBIN 25 pg (27-31); MEAN CORPUSCULAR HGB CONC 31 % (32-36); MEAN CORPUSCULAR VOLUME 81 fL (79.0-98.0); MONOCYTES # (AUTO) 0.7 K/uL (0.0-1.0); MONOCYTES % (AUTO) 8.3 % (1.7-9.3); NEUTROPHILS # (AUTO) 5.2 K/uL (1.8-7.7); PLATELET COUNT (AUTO) 212 K/uL (130-430); RED BLOOD CELL COUNT(AUTO) 3.52 MIL/uL (4.2-6.2); RED CELL DISTRIBUTION WIDTH 18.5 % (9.0-15.0)
[2016-12-12 08:00] VITALS: BP_SYST 147
[2016-12-12] MEDS ORDERED: metFORMIN HCL 500 MG TABLET PO SCH (08:00)
[2016-12-12 08:03] LABS: CALCIUM 8.5 mg/dL (8.4-11.0); CREATININE 2.8 mg/dL (0.55-1.30); POTASSIUM 3.5 mmol/L (3.5-5.1)
[2016-12-12 08:18] LABS: ALBUMIN 2.4 g/dL (3.4-4.8); FREE T4 (FREE THYROXINE) 1.2 ng/dl (0.8-1.5); THYROID STIMULATING HORMONE 3.06 uIu/mL (0.36-3.74); TOTAL BILIRUBIN 0.7 mg/dL (0.0-1.0)
[2016-12-12] MEDS ORDERED: PREGABALIN 25 MG CAPSULE (LYRICA) PO SCH ×2 (09:00→21:00)
[2016-12-12] MEDS ORDERED: CEFEPIME 1 GM/DEXT-ISO-OSM 50 ML FROZ.PIGGY IV SCH (09:00)
[2016-12-12] MEDS: ASCORBIC ACID 500 MG TABLET PO SCH (09:40)
[2016-12-12] MEDS: LORATADINE 10 MG TABLET PO SCH (09:40)
[2016-12-12] MEDS: ATORVASTATIN 20 MG TABLET PO SCH (09:40)
[2016-12-12] MEDS: PANTOPRAZOLE SODIUM 40 MG TAB PO SCH (09:40)
[2016-12-12] MEDS: LISINOPRIL 5 MG TABLET PO SCH (09:41)
[2016-12-12] MEDS: METHOCARBAMOL 500 MG TABLET PO SCH ×3 (09:50→21:36)
[2016-12-12] MEDS: INSULIN ASPART 100 UNITS/ML, 10 ML VIAL SUBCUT SCH ×2 (10:06→18:00)
[2016-12-12] MEDS ORDERED: PREGABALIN 75 MG CAPSULE (LYRICA) PO ONE (10:45)
[2016-12-12 12:32] VITALS: BP_SYST 145
[2016-12-12 15:57] VITALS: BP_SYST 141
[2016-12-12] MEDS: FLUCONAZOLE 100 mg/ NS 50 ML IV SCH (17:33)
[2016-12-12] MEDS: PREGABALIN 25 MG CAPSULE (LYRICA) PO SCH (21:36)
[2016-12-13] MEDS: PIPERACILLIN/TAZO 2.25G/DEX-IS 50 ML IV SCH ×4 (00:06→17:37)
[2016-12-13 03:30] VITALS: BP_SYST 152
[2016-12-13 07:32] LABS: BASOPHILS # (AUTO) 0.1 K/uL (0.0-0.2); BASOPHILS % (AUTO) 0.7 % (0.0-2.0); EOSINOPHILS # (AUTO) 0.1 K/uL (0.0-0.4); EOSINOPHILS % (AUTO) 1.5 % (0.0-4.0); HEMATOCRIT 28.7 % (36-54); HEMOGLOBIN 8.9 g/dL (14.0-18.0); LYMPHOCYTES # (AUTO) 2.3 K/uL (1.0-5.5); LYMPHOCYTES % (AUTO) 29.5 % (20.5-51.5); MEAN CORPUSCULAR HEMOGLOBIN 26 pg (27-31); MEAN CORPUSCULAR HGB CONC 31 % (32-36); MEAN CORPUSCULAR VOLUME 82 fL (79.0-98.0); MONOCYTES # (AUTO) 0.5 K/uL (0.0-1.0); MONOCYTES % (AUTO) 6.8 % (1.7-9.3); NEUTROPHILS # (AUTO) 4.9 K/uL (1.8-7.7); NEUTROPHILS % (AUTO) 61.5 % (40.0-70.0); PLATELET COUNT (AUTO) 177 K/uL (130-430); RED CELL DISTRIBUTION WIDTH 18.8 % (9.0-15.0); WHITE BLOOD COUNT (AUTO) 7.9 K/uL (4.8-10.8)
[2016-12-13 08:00] VITALS: BP_SYST 143
[2016-12-13 08:25] LABS: ALBUMIN 1.5 g/dL (3.4-4.8); POTASSIUM 3.5 mmol/L (3.5-5.1); TOTAL BILIRUBIN 0.1 mg/dL (0.0-1.0)
[2016-12-13 08:36] LABS: CALCIUM 8.3 mg/dL (8.4-11.0); CREATININE 3.14 mg/dL (0.55-1.30)
[2016-12-13] MEDS: LORATADINE 10 MG TABLET PO SCH (09:45)
[2016-12-13] MEDS: ASCORBIC ACID 500 MG TABLET PO SCH (09:45)
[2016-12-13] MEDS: PANTOPRAZOLE SODIUM 40 MG TAB PO SCH (09:45)
[2016-12-13] MEDS: ATORVASTATIN 20 MG TABLET PO SCH (09:45)
[2016-12-13] MEDS: METHOCARBAMOL 500 MG TABLET PO SCH ×3 (09:46→22:02)
[2016-12-13] MEDS: OXYCODONE/ACETAMINOPHEN 5-325 TABLET PO PRN (09:47)
[2016-12-13] MEDS: LISINOPRIL 5 MG TABLET PO SCH (09:47)
[2016-12-13 12:32] VITALS: BP_SYST 158
[2016-12-13 16:06] VITALS: BP_SYST 151
[2016-12-13] MEDS: FLUCONAZOLE 100 mg/ NS 50 ML IV SCH (17:37)
[2016-12-13] MEDS: PREGABALIN 25 MG CAPSULE (LYRICA) PO SCH (22:02)
[2016-12-14 00:03] VITALS: BP_SYST 147
[2016-12-14] MEDS: PIPERACILLIN/TAZO 2.25G/DEX-IS 50 ML IV SCH ×2 (00:56→05:47)
[2016-12-14 03:55] VITALS: BP_SYST 148
[2016-12-14] MEDS: ATORVASTATIN 20 MG TABLET PO SCH (08:31)
[2016-12-14] MEDS: PANTOPRAZOLE SODIUM 40 MG TAB PO SCH (08:32)
[2016-12-14] MEDS: LORATADINE 10 MG TABLET PO SCH (08:32)
[2016-12-14] MEDS: METHOCARBAMOL 500 MG TABLET PO SCH ×3 (08:32→20:58)
[2016-12-14] MEDS: OXYCODONE/ACETAMINOPHEN 5-325 TABLET PO PRN (08:34)
[2016-12-14] MEDS: LISINOPRIL 5 MG TABLET PO SCH (08:35)
[2016-12-14] MEDS: ASCORBIC ACID 500 MG TABLET PO SCH (08:35)
[2016-12-14] MEDS: CEFEPIME 1 GM in D5W 50 ML IV SCH (10:30)
[2016-12-14 12:24] VITALS: BP_SYST 127
[2016-12-14 17:10] VITALS: BP_SYST 147
[2016-12-14] MEDS: FLUCONAZOLE 100 mg/ NS 50 ML IV SCH (18:40)
[2016-12-14 19:30] VITALS: BP_SYST 145
[2016-12-14] MEDS ORDERED: COMMUNICATION ORDER XX ONE (20:45)
[2016-12-14] MEDS: PREGABALIN 25 MG CAPSULE (LYRICA) PO SCH (20:58)
[2016-12-14] MEDS: ANTIFUNGAL CLEAR OINTMENT TP SCH (21:00)
[2016-12-15 00:36] VITALS: BP_SYST 150
[2016-12-15 03:35] VITALS: BP_SYST 147
[2016-12-15] MEDS: OXYCODONE/ACETAMINOPHEN 5-325 TABLET PO PRN (05:37)
[2016-12-15] MEDS ORDERED: ONDANSETRON HCL 4 MG/2 ML VIAL IVP PRN (06:45)
[2016-12-15 08:00] VITALS: BP_SYST 149
[2016-12-15] MEDS ORDERED: BALSAM PERU/CASTOR OIL 60 GM OINT...G. TP SCH (09:00)
[2016-12-15] MEDS: ANTIFUNGAL CLEAR OINTMENT TP SCH (09:00)
[2016-12-15] MEDS: LISINOPRIL 5 MG TABLET PO SCH (09:00)
[2016-12-15] MEDS: PANTOPRAZOLE SODIUM 40 MG TAB PO SCH (09:15)
[2016-12-15] MEDS: ATORVASTATIN 20 MG TABLET PO SCH (09:15)
[2016-12-15] MEDS: METHOCARBAMOL 500 MG TABLET PO SCH ×2 (09:15→16:29)
[2016-12-15] MEDS: ASCORBIC ACID 500 MG TABLET PO SCH (09:15)
[2016-12-15] MEDS: LORATADINE 10 MG TABLET PO SCH (09:15)
[2016-12-15] MEDS: CEFEPIME 1 GM in D5W 50 ML IV SCH (09:19)
[2016-12-15 12:36] VITALS: BP_SYST 137
[2016-12-15] MEDS ORDERED: HEPARIN SODIUM,PORCINE 5000 UNITS/ML VIAL MC ONE (14:00)
[2016-12-15] MEDS: FLUCONAZOLE 100 mg/ NS 50 ML IV SCH (16:29)
[2016-12-15 16:46] VITALS: BP_SYST 139
[2016-12-15 16:58] VITALS: BP_SYST 144
[2016-12-15] MEDS ORDERED: ISENTRESS 400 MG PO SCH (21:00)
[2016-12-15] MEDS ORDERED: SELZENTRY PO SCH (21:00)
[2016-12-16] MEDS ORDERED: PREZCOBIX 800 MG PO SCH (09:00)
== END 2016-12-15 19:20 | DRG 727 ==
LOC: SED 13:39 → SMU 18:48
PROVIDERS: ADMIT Internal Medicine Hospice and Palliative Medicine; ATTEND Internal Medicine Hospice and Palliative Medicine
PROC: 5A1D60Z (ICD-10-PCS; principal; 2016-12-13)
DX: N49.2 Inflammatory disorders of scrotum (principal); N18.6 End stage renal disease; E43 Unspecified severe protein-calorie malnutrition; I50.33 Acute on chronic diastolic (congestive) heart failure; J96.10 Chronic respiratory failure, unspecified whether with hypoxia or hypercapnia; E11.22 Type 2 diabetes mellitus with diabetic chronic kidney disease; E11.42 Type 2 diabetes mellitus with diabetic polyneuropathy; B37.49 Other urogenital candidiasis; I25.10 Atherosclerotic heart disease of native coronary artery without angina pectoris; I13.2 Hypertensive heart and chronic kidney disease with heart failure and with stage 5 chronic kidney disease, or end stage renal disease; Z68.41 Body mass index [BMI] 40.0-44.9, adult; N39.0 Urinary tract infection, site not specified; B96.89 Other specified bacterial agents as the cause of diseases classified elsewhere; E87.6 Hypokalemia; E11.649 Type 2 diabetes mellitus with hypoglycemia without coma; Z96.653 Presence of artificial knee joint, bilateral; E88.09 Other disorders of plasma-protein metabolism, not elsewhere classified; J44.9 Chronic obstructive pulmonary disease, unspecified; G47.33 Obstructive sleep apnea (adult) (pediatric); E66.9 Obesity, unspecified; Z86.718 Personal history of other venous thrombosis and embolism; Z99.2 Dependence on renal dialysis; Z87.891 Personal history of nicotine dependence; Z90.49 Acquired absence of other specified parts of digestive tract; Z95.5 Presence of coronary angioplasty implant and graft; Z88.8 Allergy status to other drugs, medicaments and biological substances; Z79.899 Other long term (current) drug therapy
CPT/HCPCS: 36415; 71010; 74000-TC; 80053; 81000-TC; 82140-TC; 82962; 83036; 83605; 83880; 84439; 84443-TC; 84484; 85025; 85610-TC; 87040-TC; 87081; 87086; 87186-TC; 90935; 93005; 96365; 97530-GP; 99285; J0692; J1450; J1644; J1815; J2405; J2543; J3370; J7030; J7050; J7060; Q0164